=== PATIENT | male | born 1975 | race Two or more races ===

== ENCOUNTER 2025-03-03 12:58 | Inpatient (IN) | payer MEDICAID, OTHER ==
[~2025-03-03] VITALS: Ht 177.8 cm; Wt 77.4 kg
--- NOTE | 2025-03-03 13:53 | ED.PDOC ---
History of Present Illness HPI Comments Mr. Emery a 49-year-old male with no prior medical history who presents today with chief complaint of abdominal pain. The patient refers that for the last 2-3 days he had progressive onset of sharp epigastric pain, originally intermittent now constant, that radiates towards the back, 10/10 intensity, ass ociated with yellowing of his eyes, vomiting, febrile sensation, chills, palpitations, constipation, and shortness of breath, aggravated by eating, without relieving factors. Additionally refers changes in color of his stools. He denies nausea, chest pain, diarrhea, dysuria, hematemesis, hematochezia, and melena. To persistence of symptoms, the patient presented to the emergency department for further evaluation. On initial evaluation, the patient seems uncomfortable due to pain and vitals are stable. Chief Complaint: Abdominal Pain Time Seen by MD: 13:30 Allergies: Coded Allergies: NO KNOWN ALLERGIES (Unverified , 03/03/25) Information Source: Patient Mode of Arrival: Ambulatory Severity: Moderate Timing: Days Duration: Since onset Past Medical History PAST MEDICAL HISTORY: Denies Surgical History: Appendectomy Family History Family History: Family hx of Cancer (Sister with pancreatic cancer ) Social History Smoker: Non-Smoker Alcohol: Denies ETOH Use Drugs: Denies Drug Use Lives In: Home Constitutional: reports: chills, others (Febrile sensation ); denies: diaphoresis, fatigue, fever, malaise EENTM: denies: blurred vision, double vision, ear bleeding, ear discharge, ear drainage, ear pain, ear ringing, eye pain, hearing loss, nasal discharge, nose bleeding, nose congestion, nose pain, throat pain Respiratory: reports: shortness of breath; denies: cough, hemoptysis, orthopnea Cardiovascular: denies: chest pain, dizzy spells, diaphoresis, edema, lightheadedness, palpitations Gastrointestinal: reports: abdominal pain, constipated, poor appetite, vomiting ; denies: abdomen distended, blood streaked bowels, diarrhea, dysphagia, difficulty swallowing, hematemesis, melena, nausea, poor fluid intake, rectal bleeding, rectal pain Genitourinary: reports: others; denies: burning, dysuria, flank pain, frequency, hematuria, incontinence, pain, urgency Neurological: denies: dizziness, fainting, headache, numbness, paresthesia, seizure, tingling, tremors, weakness Musculoskeletal: denies: back pain, joint pain, joint swelling, muscle pain, muscle stiffness, neck pain Integumetry: reports: change in hair/nails; denies: bruises, change in color, laceration, lesions, lumps, rash, wounds Physical Exam General Appearance: Moderate Distress HEENT: PERRL/EOMI, Pharynx Normal, Scleral Icterus (L), Scleral Icterus (R) Neck: Full Range of Motion, Non-Tender, Normal Inspection Respiratory: Chest Non-Tender, No Accessory Muscle Use, No Respiratory Distress, Normal Breath Sounds Cardiovascular: No Edema, No Murmur, Normal Peripheral Pulses, Regular Rate/Rhythm Breast Exam: Deferred Gastrointestinal: Epigastric (Tenderness on palpation), Normal Bowel Sounds, RUQ (Vences positive ), Tenderness Genitalia: Deferred Pelvic: Deferred Rectal: Deferred Extremities: Normal capillary refill, Normal inspection, Normal range of motion, Non-tender, No pedal edema Neurologic: No Motor Deficits, Normal Affect, Normal Mood Cerebellar Function: Normal Reflexes: NOT DONE Skin: Normal Color (No jaundice noted on observation ) Lymphatic: No Adenopathy Was a procedure done? Was a procedure done?: No Differential Dx Considerations may include: Acute Cholecystitis, Acute Pancreatitis, Acute Choledocolithiasis, Acute Cholangitis, Acute Hepatitis X-Ray, Labs, Meds, VS Vital Signs Date Time Temp Pulse Resp B/P (MAP) Pulse Ox O2 Delivery O2 Flow Rate FiO2 03/03/25 13:01 98.2 81 18 121/69 97 98.2 Lab Test 03/03/25 14:07 03/03/25 14:06 Range/Units White Blood Count 6.7 4.4-10.8 10^3/uL Red Blood Count 3.96 L 4.5-5.90 10^6/uL Hemoglobin 13.8 13.5-17.5 g/dL Hematocrit 40.6 L 41.0-53.0 % Mean Corpuscular Volume 102.5 H 80.0-100.0 fL Mean Corpuscular Hemoglobin 34.8 H 28.0-32.0 pg Mean Corpuscular Hemoglobin Concent 33.9 32.0-36.0 g/dL Red Cell Distribution Width 13.8 11.8-14.3 % Platelet Count 166 140-450 10^3/uL Mean Platelet Volume 7.0 6.9-10.8 fL Neutrophils (%) (Auto) 80.7 H 37.0-80.0 % Lymphocytes (%) (Auto) 9.4 L 10.0-50.0 % Monocytes (%) (Auto) 8.8 0.0-12.0 % Eosinophils (%) (Auto) 0.9 0.0-7.0 % Basophils (%) (Auto) 0.2 0.0-2.0 % Neutrophils # (Auto) 5.5 1.6-8.6 10 ^3/uL Lymphocytes # (Auto) 0.6 0.4-5.4 10 ^3/uL Monocytes # (Auto) 0.6 0-1.3 10 ^3/uL Eosinophils # (Auto) 0.1 0-0.8 10 ^3/uL Basophils # (Auto) 0 0-0.2 10 ^3/uL Nucleated Red Blood Cells 0.0 % Sodium Level 139 136-145 mmol/L Potassium Level 3.6 3.5-5.1 mmol/L Chloride Level 102 98-107 mmol/L Carbon Dioxide Level 28 20-31 mmol/L Anion Gap 9 5-15 Blood Urea Nitrogen 15 9-23 mg/dL Creatinine 1.01 0.700-1.30 mg/dL Glomerular Filtration Rate Calc 92 >90 mL/min BUN/Creatinine Ratio 14.9 10.0-20.0 Serum Glucose 91 74-106 mg/dL Hemoglobin A1c Pending Calcium Level 9.0 8.7-10.4 mg/dL Total Bilirubin 6.4 H 0.2-1.0 mg/dL Aspartate Amino Transferase (AST) 34 13-40 U/L Alanine Aminotransferase (ALT) 47 H 7-40 U/L Alkaline Phosphatase 84 46-116 U/L Total Protein 7.4 5.7-8.2 g/dL Albumin 4.7 3.2-4.8 g/dL Triglycerides Level 69 < 150 mg/dL Cholesterol Level 104 < 200 mg/dL LDL Cholesterol 43 < 100 mg/dL HDL Cholesterol 44 40-59 mg/dL Lipase 34 12-53 U/L Hepatitis A IgM Antibody Negative Hepatitis B Surface Antigen Negative Negative Hepatitis B Core IgM Antibody Negative Negative Hepatitis C Antibody Negative Negative Urine Color [place] H Yellow Urine Clarity Clear Clear Urine pH 6.0 5.0-9.0 Urine Specific [place] 1.030 1.001-1.035 Urine Protein Trace H Negative Urine Ketones Negative Negative Urine Blood Negative Negative /uL Urine Nitrite Negative Negative Urine Bilirubin 1+ Negative Urine Urobilinogen 12 H Negative mg/dL Urine Leukocyte Esterase Negative Negative /uL Urine RBC 1 0 - 3 /hpf Urine Microscopic WBC 1 0-3 /HPF Urine Squamous Epithelial Cells Few <5 /hpf Urine Bacteria None seen None Seen /hpf Urine Mucus Few None Seen Urine Glucose Normal Normal mg/dL Time of 1ST Reevaluation: 15:00 Reevaluation 1ST: Unchanged Patient Education/Counseling: Diagnosis, Treatment Family Education/Counseling: No Family Present Comments The patient presented today due to abdominal pain On initial evaluation, the patient is noted to be stable, uncomfortable due to pain, and with icteric sclera. Physical exam is positive for icteric sclera and pain on palpation of epigastriu m and RUQ, with positive vences sign CBC shows mild neutrophilia and macrocytosis, CMP with mild elevation of ALT and total bilirubin of 6.4. Abdominal/Pelvic CT shows distended gall bladder with pericholecystic fat stranding. The patient will be admitted for further work up and management SEPSIS Sepsis Screen Date sepsis recognized/suspect: Mar 03, 2025 Time Sepsis recognized/suspect: 1301 Recent Procedure: No On Antibiotic Therapy: No Respiratory Rate >20: No Heart Rate >90: No Temp<36 C (96.8 F) or >38.3 C: No SBP <90 or MAP <65 mmHG: No New Acute Mental Status Change: No Is the patient on CPAP, BIPAP,: No Physician Orders Ct Ab Pel Wo Con-No Oral Or Iv (03/03/25 13:35) Npo (Nothing By Mouth) Diet (03/03/25 Dinner) Vital Signs Date Time Temp Pulse Resp B/P (MAP) Pulse Ox O2 Delivery O2 Flow Rate FiO2 03/03/25 13:01 98.2 81 18 121/69 97 98.2 Laboratory Tests Test 03/03/25 14:07 White Blood Count 6.7 10^3/uL (4.4-10.8) Departure 1 Departure Time of Disposition: 15:33 Impression: Primary Impression: Acute cholecystitis Disposition: 30 STILL A PATIENT Admit to: Med Surg Condition: Stable Critical Care Note Critical Care Time?: No Stability Stability form required: LIZ Pompa RESIDENT Mar 03, 2025 13:53
[2025-03-03 14:38] LABS: Hematocrit 40.6 % (41.0-53.0); Hemoglobin 13.8 g/dL (13.5-17.5); Mean Corpuscular Hemoglobin 34.8 pg (28.0-32.0); Mean Corpuscular Volume 102.5 fL (80.0-100.0); Nucleated Red Blood Cells % 0.0 %
--- NOTE | 2025-03-03 14:40 | DVH ---
CT CT AB PEL WO CON-NO ORAL OR IV INDICATION: R/o pancreatitis EXAM DATE: 03/03/2025 01:48 PM COMPARISON: None RADIATION DOSE: CTDIvol: 7 mGy, DLP: 415 mGy*cm PROCEDURE: Helical CT images were obtained of the abdomen and pelvis without IV contrast Sagittal and coronal reconstructions are provided. ORAL CONTRAST: None. ADDITIONAL IMAGES / REFORMATS: None All C T scans at this medical facility are performed using dose modulation techniques as appropriate to a p erformed exam including the following: Automated exposure control was utilized; adjustment of the MA and/or KV according to patient size; and use of iterative reconstruction technique. FINDINGS: LUNG BASE: Normal. LIVER: Normal. GALLBLADDER AND BILIARY TREE: Distended gallbladder with pericholecystic fat stranding could be saji cystitis. No intra- or extrahepatic biliary ductal dilation. PANCREAS: Normal. SPLEEN: Normal. BOWEL: Normal. ADRENALS: Normal. KIDNEYS AND URETER: Punctate nonobstructive left kidney stone. BLADDER: Normal. REPRODUCTIVE ORGANS: Normal. LYMPH NODES:No lymphadenopathy. PERITONEUM: No ascites or free air. No other fluid collection. VESSELS: Scattered atherosclerotic calcifications are noted. RETROPERITONEUM: Normal. ABDOMINAL WALL: Normal. BONES: Scattered osseous degenerative changes are noted. IMPRESSION: Distended gallbladder with pericholecystic fat stranding could be cholecystitis. Consider US scan for further evaluation. Punctate nonobstructive left kidney stone.
[2025-03-03 14:46] LABS: Alanine Aminotransferase 47 U/L (7-40); Albumin 4.7 g/dL (3.2-4.8); Alkaline Phosphatase 84 U/L (46-116); Anion Gap 9 (5-15); BUN/Creatinine Ratio 14.9 (10.0-20.0); Bilirubin, Total 6.4 mg/dL (0.2-1.0); Blood Urea Nitrogen 15 mg/dL (9-23); Calcium 9.0 mg/dL (8.7-10.4); Carbon Dioxide 28 mmol/L (20-31); Chloride 102 mmol/L (98-107); Glucose 91 mg/dL (74-106); Lipase 34 U/L (12-53); Potassium 3.6 mmol/L (3.5-5.1); Sodium 139 mmol/L (136-145); Total Protein 7.4 g/dL (5.7-8.2)
[2025-03-03 14:56] LABS: Urine Protein, UAD TRACE (Negative)
[2025-03-03] MEDS ORDERED: ACETAMINOPHEN 325 MG TAB PO PRN (15:00)
[2025-03-03 15:04] LABS: Hepatitis B Surface Antigen Negative (Negative)
[2025-03-03 15:23] LABS: Hepatitis C Antibody Negative (Negative)
[2025-03-03 15:26] LABS: Triglycerides 69 mg/dL (< 150)
[2025-03-03 15:28] LABS: Cholesterol 104 mg/dL (< 200); HDL Cholesterol 44 mg/dL (40-59)
--- NOTE | 2025-03-03 15:43 | DVH ---
CLINICAL HISTORY: Possible cholecystitis TECHNIQUE: Complete ultrasound exam of the abdomen was performed. COMPARISON: None FINDINGS: The liver is increased in echogenicity with no focal parenchymal abnormality. The liver measures 16. 3 cm. The common duct is 5 mm. The gallbladder contains sludge with moderate wall thickening. The sonograph ic archuleta's sign is reported to be present. The partially visualized pancreas is within normal limits. No ascites or fluid collection. The right kidney is 11.8 cm and the left kidney is 11.7 cm. No increased echogenicity, shadowing sto ne, or focal lesion. Mild right renal pelvicaliectasis. Spleen is within normal limits. The aorta and IVC are normal caliber and patent. IMPRESSION: Moderate gallbladder sludge with gallbladder wall thickening and positive reported sonographic archuleta 's sign. No gallstone seen. Consider HIDA and correlation with CT for more definitive diagnosis. Mild right renal pelvicaliectasis.
--- NOTE | 2025-03-03 16:04 | DVHHPRES ---
History of Present Illness Resident Creating Document: NICOLE BRUNER History of Present Illness This is a 49-year-old male with no past medical history of relevance and stated that does not take any medications at home. Patient presented to the ED due to acute abdominal pain in the epigastric region radiating to the back. Patient states that the abdominal pain has been going on for a couple of weeks, patient states that the pain comes and goes but it got worse 2 days back reason why he came to ED. The patient reports that the pain is localized in the epigastric region and radiates towards the back. The patient states that the pain is rated as 10/10 on the pain scale associated with nausea and vomiting x3. The patient also reports chills but states that did not quantified the temperature. The patient also reports shortness of breath while taking deep breaths and states that the pain gets significantly worse after eating. Patient denies any chest pain, diarrhea, or any other additional symptoms. Upon admission, CT scan of the abdomen showed possible signs of cholecystitis which were confirmed with gallbladder ultrasound. We will start the patient on IV fluids, IV antibiotics and place a surgical consult for acute cholecystitis. We will admit the patient for further assessment and management. Past medical history: None Home medications: None Surgical history: Appendectomy 18 years ago Allergies: None Social history: Reports occasional alcohol but denies any drugs or smoking history. Past Surgical History: Appendectomy Family History: None Smoke: No ALCOHOL: occassional Drugs: None Lives: with Family Review of Systems Constitutional: Yes: Chills; No: Fever, Sweats, Weakness, Malaise, Other Eyes: No: Pain, Vision change, Conjunctivae inflammation, Eyelid inflammation, Other, Redness ENT: No: Ear pain, Ear discharge, Nose pain, Nose discharge, Nose congestion, Mouth pain, Mouth swelling, Throat pain, Throat swelling, Other Respiratory: No: Cough, Dry, Shortness of breath, SOB with excertion, Wheezing, Hemoptysis, Pleuritic Pain, Sputum, Wheezing, Other Cardiovascular: No: Chest Pain, Palpitations, Orthopnea, Paroxysmal Noc. Dyspnea, Edema, Lt Headedness, Other Gastrointestinal: Nausea, Vomiting, Abdominal Pain; No: Diarrhea, Constipation, Melena, Hematochezia, Other Genitourinary: No Dysuria, No Frequency, No Incontinence, No Hematuria, No Retention, No Other Musculoskeletal: No: other, neck pain, shoulder pain, arm pain, back pain, hand pain, leg pain, foot pain Skin: No: Rash, Lesions, Jaundice, Bruising, Other Neurological: No: Weakness, Numbness, Incoordination, Change in speech, Confusion, Seizures, Other Allergies: Coded Allergies: NO KNOWN ALLERGIES (Unverified , 03/03/25) Medications Current Medications Medications Dose Ordered Sig/Bailey Route Start Time Stop Time Status Last Admin Dose Admin Acetaminophen 650 mg Q6HP PRN PO 03/03/25 15:00 UNV Acetaminophen/ Hydrocodone Bitart 1 tab Q4HP PRN PO 03/03/25 15:00 UNV Piperacillin Sod/ Tazobactam Sod 100 ml @ 25 mls/hr Q6HR IV 03/03/25 15:30 UNV Sodium Chloride 1,000 ml @ 100 mls/hr Q10H IV 03/03/25 15:30 UNV Exam Vital Signs Vital Signs Date Time Temp Pulse Resp B/P (MAP) Pulse Ox O2 Delivery O2 Flow Rate FiO2 03/03/25 13:01 98.2 81 18 121/69 97 98.2 General Appearance: Alert, Oriented X3, Cooperative, moderate distress HEENT: Atraumatic, PERRLA, EOMI, Mucous membr. moist/pink Respiratory: Clear to auscultation, Normal air movement Cardiovascular: Regular rate, Normal S1, Normal S2, No murmurs Abdominal: Normal bowel sounds, Other (Is significant tenderness to palpation in the epigastric and right upper quadrant.) Extremities: No clubbing, No cyanosis, No edema, Normal pulses, No tenderness/swelling Skin: No rashes, No breakdown, No significant lesion Neuro: Normal gait, Normal speech, Strength at 5/5 X4 ext, Normal tone, Sensation intact, Cranial nerves 3-12 NL, Reflexes 2+ Psych/Mental Status: Mental status NL, Mood NL Labs/Xrays Labs Test 03/03/25 14:07 03/03/25 14:06 Range/Units White Blood Count 6.7 4.4-10.8 10^3/uL Red Blood Count 3.96 L 4.5-5.90 10^6/uL Hemoglobin 13.8 13.5-17.5 g/dL Hematocrit 40.6 L 41.0-53.0 % Mean Corpuscular Volume 102.5 H 80.0-100.0 fL Mean Corpuscular Hemoglobin 34.8 H 28.0-32.0 pg Mean Corpuscular Hemoglobin Concent 33.9 32.0-36.0 g/dL Red Cell Distribution Width 13.8 11.8-14.3 % Platelet Count 166 140-450 10^3/uL Mean Platelet Volume 7.0 6.9-10.8 fL Neutrophils (%) (Auto) 80.7 H 37.0-80.0 % Lymphocytes (%) (Auto) 9.4 L 10.0-50.0 % Monocytes (%) (Auto) 8.8 0.0-12.0 % Eosinophils (%) (Auto) 0.9 0.0-7.0 % Basophils (%) (Auto) 0.2 0.0-2.0 % Neutrophils # (Auto) 5.5 1.6-8.6 10 ^3/uL Lymphocytes # (Auto) 0.6 0.4-5.4 10 ^3/uL Monocytes # (Auto) 0.6 0-1.3 10 ^3/uL Eosinophils # (Auto) 0.1 0-0.8 10 ^3/uL Basophils # (Auto) 0 0-0.2 10 ^3/uL Nucleated Red Blood Cells 0.0 % Sodium Level 139 136-145 mmol/L Potassium Level 3.6 3.5-5.1 mmol/L Chloride Level 102 98-107 mmol/L Carbon Dioxide Level 28 20-31 mmol/L Anion Gap 9 5-15 Blood Urea Nitrogen 15 9-23 mg/dL Creatinine 1.01 0.700-1.30 mg/dL Glomerular Filtration Rate Calc 92 >90 mL/min BUN/Creatinine Ratio 14.9 10.0-20.0 Serum Glucose 91 74-106 mg/dL Calcium Level 9.0 8.7-10.4 mg/dL Total Bilirubin 6.4 H 0.2-1.0 mg/dL Aspartate Amino Transferase (AST) 34 13-40 U/L Alanine Aminotransferase (ALT) 47 H 7-40 U/L Alkaline Phosphatase 84 46-116 U/L Total Protein 7.4 5.7-8.2 g/dL Albumin 4.7 3.2-4.8 g/dL Triglycerides Level 69 < 150 mg/dL Cholesterol Level 104 < 200 mg/dL LDL Cholesterol 43 < 100 mg/dL HDL Cholesterol 44 40-59 mg/dL Lipase 34 12-53 U/L Hepatitis A IgM Antibody Negative Hepatitis B Surface Antigen Negative Negative Hepatitis B Core IgM Antibody Negative Negative Hepatitis C Antibody Negative Negative Urine Color [place] H Yellow Urine Clarity Clear Clear Urine pH 6.0 5.0-9.0 Urine Specific [place] 1.030 1.001-1.035 Urine Protein Trace H Negative Urine Ketones Negative Negative Urine Blood Negative Negative /uL Urine Nitrite Negative Negative Urine Bilirubin 1+ Negative Urine Urobilinogen 12 H Negative mg/dL Urine Leukocyte Esterase Negative Negative /uL Urine RBC 1 0 - 3 /hpf Urine Microscopic WBC 1 0-3 /HPF Urine Squamous Epithelial Cells Few <5 /hpf Urine Bacteria None seen None Seen /hpf Urine Mucus Few None Seen Urine Glucose Normal Normal mg/dL SEPSIS Sepsis Screen Date sepsis recognized/suspect: Mar 03, 2025 Time Sepsis recognized/suspect: 1301 Recent Procedure: No On Antibiotic Therapy: No Respiratory Rate >20: No Heart Rate >90: No Temp<36 C (96.8 F) or >38.3 C: No SBP <90 or MAP <65 mmHG: No New Acute Mental Status Change: No Is the patient on CPAP, BIPAP,: No Physician Orders Ct Ab Pel Wo Con-No Oral Or Iv (03/03/25 13:35) Npo (Nothing By Mouth) Diet (03/03/25 Dinner) Admit (03/03/25 14:56) Code Status (03/03/25 14:56) Vital Signs .PER UNIT PROTOCOL (03/03/25 14:56) Review Orders With Adm. (03/03/25 14:56) Encourage Activity As Tolerate (03/03/25 14:56) Acetaminophen Tablet (Tylenol Tablet) (03/03/25 15:00) Notify Md Of Changes From Base (03/03/25 14:56) Advance Directive (03/03/25 14:56) Urinalysis (03/03/25 14:56) Complete Blood Count (03/04/25 04:00) Patient Condition (03/03/25 14:56) Allergies (03/03/25 14:56) Hydrocodone-Acet 5/325mg Tab (Morning Sun 5/32 (03/03/25 15:00) Drug Screen (03/03/25 14:56) Hemoglobin A1c (03/03/25 14:56) Piperacillin-Tazob 3.375gm (Zosyn 3.375g (03/03/25 15:30) * Surgical Consult (03/03/25 ) Sodium Chloride 0.9% (03/03/25 15:30) Vitamin D, 25-Hydroxy (03/03/25 15:26) Abdomen Complete Sonogram (03/03/25 14:57) Vital Signs Date Time Temp Pulse Resp B/P (MAP) Pulse Ox O2 Delivery O2 Flow Rate FiO2 03/03/25 13:01 98.2 81 18 121/69 97 98.2 Laboratory Tests Test 03/03/25 14:07 White Blood Count 6.7 10^3/uL (4.4-10.8) Assessment/Plan Assessment/Plan Assessment/plan Acute abdominal pain likely due to acute cholecystitis Acute cholecystitis Ruled out acute pancreatitis Status post appendectomy 18 years ago Plan -CT scan of the abdomen showed Distended gallbladder with pericholecystic fat stranding could be cholecystitis -gallbladder ultrasound is also suggesting findings of acute cholecystitis -start IV fluids at 100 cc/hour -start IV antibiotics Zosyn -surgical consult for cholecystectomy -pain medications -placed patient NPO Goals of care discussed with the patient at bedside, FULL CODE Plan discussed with Dr. Upton Plan discussed with: Patient My Orders Orders - NICOLE BRUNER RESIDENT Procedure Category Date Status Time Admit ADMIT 03/03/25 Transmitted 14:56 Code Status CODE 03/03/25 Transmitted 14:56 Vital Signs EUSEBIO 03/03/25 In Process 14:56 Review Orders With EUSEBIO 03/03/25 Transmitted Adm. 14:56 Encourage Activity As EUSEBIO 03/03/25 In Process Tolerate 14:56 Acetaminophen Tablet PHA 03/03/25 Logged (Tylenol Tablet) 15:00 Notify Of Changes EUSEBIO 03/03/25 In Process From Base 14:56 Advance Directive EUSEBIO 03/03/25 In Process 14:56 Urinalysis LAB 03/03/25 Logged 14:56 Complete Blood Count LAB 03/04/25 Verified 04:00 Patient Condition ORDERS 03/03/25 Transmitted 14:56 Allergies EUSEBIO 03/03/25 In Process 14:56 Hydrocodone-Acet PHA 03/03/25 Logged 5/325mg Tab (Morning Sun 15:00 Drug Screen LAB 03/03/25 Logged 14:56 Hemoglobin A1c LAB 03/03/25 In Process 14:56 Piperacillin-Tazob PHA 03/03/25 Logged 3.375gm (Zosyn 3.375g 15:30 * Surgical Consult CONS 03/03/25 Transmitted Sodium Chloride 0.9% PHA 03/03/25 Logged 15:30 Vitamin D, 25-Hydroxy LAB 03/03/25 In Process 15:26 Date of Service: Mar 03, 2025 Billing Provider: ROCÍO UPTON MD Common Visit Codes: 20885-DXHGYPH INP/OBS CARE (HIGH) Secondary Visit Codes: 75853-[id number] CARE PLAN 30 MINUTES NICOLE BRUNER RESIDENT Mar 03, 2025 16:03 ROCÍO UPTON MD Mar 03, 2025 22:22
[2025-03-03] MEDS: SODIUM CHLORIDE 0.9% 1,000 ML IV SCH (16:24)
[2025-03-03] MEDS ORDERED: PIPERACILLIN-TAZOB 3.375GM 100 ML IV SCH (16:30)
[2025-03-03 16:32] VITALS: PULSE 74; RESP 19; O2SAT 98
[2025-03-03] MEDS: SODIUM CHLORIDE 0.9% 1,000 ML IV ONE (16:38)
[2025-03-03] MEDS: PIPERACILLIN-TAZOB 3.375GM 100 ML IV ONE (16:43)
[2025-03-03] MEDS: HYDROmorphone HCL 2 MG/ML VL/or syr IV ONE ×2 (16:43→23:04)
[2025-03-03 17:25] VITALS: BP 127/64; PULSE 79; RESP 16; TEMP 98.6; O2SAT 92
[2025-03-03 20:22] LABS: Barbiturate Scree,Urine Pos (NEGATIVE)
[2025-03-03 20:35] VITALS: BP 134/71; PULSE 82; RESP 18; TEMP 98.9; O2SAT 96
[2025-03-03 20:38] LABS: Amphetamine Screen, Urine Neg (NEGATIVE); Benzodiazephine Screen, Urine Neg (NEGATIVE); Cannabinoid Screen, Urine Neg (NEGATIVE); Cocaine Screen, Urine Neg (NEGATIVE); Opiate Scree,Urine Pos (NEGATIVE); Phencyclidine Screen, Urine Neg (NEGATIVE)
[2025-03-03] MEDS: HYDROmorphone HCL 2 MG/ML VL/or syr IV PRN (20:38)
[2025-03-03 20:44] VITALS: BP 109/57; PULSE 81; RESP 19; TEMP 98.7; O2SAT 96
[2025-03-03 21:03] VITALS: PULSE 82; RESP 18; O2SAT 96
[2025-03-03] MEDS: PIPERACILLIN-TAZOB 3.375GM 100 ML IV SCH (23:04)
[2025-03-04] VITALS (8 sets, daily range): BP systolic 104–125; BP diastolic 61–74; PULSE 70–96; RESP 17–18; TEMP 97.6–101.2; O2SAT 92–94
[2025-03-04] MEDS: ACETAMINOPHEN IV 1000 MG/100ML (10MG/ML) IV ONE (04:20)
[2025-03-04 05:48] LABS: Hematocrit 34.8 % (41.0-53.0); Hemoglobin 12.0 g/dL (13.5-17.5); Mean Corpuscular Hemoglobin 35.0 pg (28.0-32.0); Mean Corpuscular Volume 101.6 fL (80.0-100.0); Nucleated Red Blood Cells % 0.1 %
[2025-03-04] MEDS: HYDROcodone-ACET 5/325MG TAB PO PRN (08:22)
[2025-03-04] MEDS: ERGOCALCIFEROL 50,000 UNIT(1.25MG) CAP PO SCH (10:12)
--- NOTE | 2025-03-04 11:40 | DVH ---
MRCP without contrast HISTORY: R/O Choledocolithiasis. Right upper quadrant pain. COMPARISON: Ultrasound from 03/03/2025. Technique: Multiplanar multisequence MRI images were obtained of the abdomen without intravenous cont rast. Additional MIPS were obtained of the biliary system. FINDINGS: Bile ducts: -Intrahepatic ducts: Non-dilated. -Extrahepatic ducts: Non-dilated. -Common bile duct: Non-dilated. -Filling defects: No filling defects -Stricture: None. Gallbladder: No gallstones. Sludge in the gallbladder. Gallbladder distention. Diffuse gallbladder w all thickening. Mild edema. Pancreas: Pancreatic duct: No ductal dilatation. Lesions: None. Liver: Signal intensity: Homogenous. Contour: Smooth. Size: Normal. Lesions: No focal liver lesion. ADDITIONAL FINDINGS: Lung base: Normal. Pancreas: Normal. Spleen: Enlarged measuring 14.5 cm. Bowel: Normal. Adrenal glands:Normal. Kidneys and ureters:Normal. Lymph nodes:Normal. Peritoneum:Normal. Vessels: Normal. Abdominal wall: Normal. Bone: No aggressive bone lesions IMPRESSION: CBD is normal in diameter with no stone or other obstructing lesion. Thick-walled distended gallbladder without gallstones and with surrounding edema again making it diff icult to exclude acute acalculous cholecystitis. Mild splenomegaly.
--- NOTE | 2025-03-04 14:51 | DVHPNRES ---
Progress Note Date Seen: Mar 04, 2025 Resident Creating Document: JAZZ MENDEZ RESIDENT Medical Necessity Reason Pt with a Central, PICC or Fol: No Subjective Review of Systems Waqar Emery is a 49-year old with no past medical history who came to the ER with the chief complaint of acute abdominal pain. Patient states that he has had the abdominal pain for a few weeks, it comes and goes but isn't increased in intensity 2 days back. Pain is 10/10 in intensity, in the epigastric region radiating towards the back, associated with nausea and 3 episodes of vomiting. Patient had chills but denies fever. He states he also had shortness of breath while taking deep breaths , which gets worse after eating. CT scan of the abdomen showed possible signs of cholecystitis which were confirmed with gallbladder ultrasound. Liver US showed Moderate gallbladder sludge with gallbladder wall thickening and positive reported sonographic archuleta's sign. No gallstone seen. MRCP showed CBD is normal in diameter with no stone or other obstructing lesion, Thick-walled distended gallbladder without gallstones and with surrounding edema again making it difficult to exclude acute acalculous cholecystitis and Mild splenomegaly. Surgical consult was done, pending evaluation by them. Past medical history: none Past surgical history: appendectomy 18 years ago Social & Personal history: lives at home with family Smoking: denies Alcohol: ocassional intake Drugs:denies Allergies: no known allergies Patient seen and examined at bedside. Patient is alert and oriented to time, place person and responding to all questions. Eyes: No Pain, No Vision change, No Conjunctivae inflammation, No Eyelid inflammation, No Redness ENT: No Ear pain, No Ear discharge, No Nose pain, No Nose discharge, No Nose congestion, No Mouth pain, No Mouth swelling, No Throat pain, No Throat swelling Cardiovascular: No Chest Pain, No Palpitations, No Orthopnea, No Paroxysmal No Dyspnea, No Edema, No Lt Headedness Respiratory: No Cough, No Dry, No Shortness of breath, No SOB with exertion, No Wheezing, No Hemoptysis, No Pleuritic Pain, No Sputum Gastrointestinal: Nausea, Vomiting,Abdominal Pain, No Diarrhea, No Constipation, No Melena, No Hematochezia Genitourinary: No Dysuria, No Frequency, No Incontinence, No Hematuria, No Retention Objective vital signs Vital Sign Date Time Temp Pulse Resp B/P (MAP) Pulse Ox O2 Delivery O2 Flow Rate FiO2 03/04/25 12:59 98.3 78 17 104/61 (75) 94 98.3 03/04/25 08:05 Room Air* 0 21 Total Intake and Output 03/03/25 03/03/25 03/04/25 15:00 23:00 07:00 Intake Total 0 ml Output Total 200 ml Balance -200 ml medications Current Medications Medications Dose Ordered Sig/Bailey Route Start Time Stop Time Status Last Admin Dose Admin Acetaminophen 650 mg Q6HP PRN PO 03/03/25 15:00 Acetaminophen/ Hydrocodone Bitart 1 tab Q4HP PRN PO 03/03/25 15:00 03/04/25 14:38 1 TAB Piperacillin Sod/ Tazobactam Sod 100 ml @ 25 mls/hr Q6H IV 03/03/25 23:00 03/04/25 11:22 25 MLS/HR Sodium Chloride 1,000 ml @ 100 mls/hr Q10H IV 03/03/25 15:30 03/04/25 01:48 100 MLS/HR Hydromorphone HCl 0.25 mg Q6HP PRN IV 03/03/25 19:00 03/04/25 10:12 0.25 MG Ergocalciferol 50,000 unit Q7D PO 03/04/25 09:15 03/04/25 10:12 50,000 UNIT Examination General Appearance: Alert, Oriented X3, Cooperative, moderate distress HEENT: Atraumatic, PERRLA, EOMI, Mucous membr. moist/pink,scleral icterus bilateral eyes Respiratory: Clear to auscultation, Normal air movement Cardiovascular: Regular rate, Normal S1, Normal S2, No murmurs Abdominal: Normal bowel sounds, significant tenderness to palpation in the epigastric and right upper quadrant Extremities: No clubbing, No cyanosis, No edema, Normal pulses, No tenderness/swelling Skin: No rashes, No breakdown, No significant lesion Neuro: Normal gait, Normal speech, Strength at 5/5 X4 ext, Normal tone, Sensation intact, Cranial nerves 3-12 NL, Reflexes 2+ Psych/Mental Status: Mental status NL, Mood NL laboratory and microbiology Laboratory Tests 03/04/25 04:36 03/03/25 14:07 Test 03/03/25 14:07 Range/Units Serum Glucose 91 74-106 mg/dL Labs and/or images reviewed: Labs reviewed by me, Image(s) reviewed by me Problem List/Assessment/Plan Problem List/Assessment/Plan Acute abdominal pain likely due to acute cholecystitis Acute cholecystitis Hyperbilirubinemia Ruled out acute pancreatitis Status post appendectomy 18 years ago -CT scan of the abdomen showed Distended gallbladder with pericholecystic fat stranding could be cholecystitis -gallbladder ultrasound is also suggesting findings of acute cholecystitis -IV fluids at 100 cc/hour - IV antibiotics Zosyn -surgical consult for cholecystectomy-ordered MRCP- Thick-walled distended gallbladder without gallstones and with surrounding edema again making it difficult to exclude acute acalculous cholecystitis - CBD is normal in diameter with no stone or other obstructing lesion. -pain medications -placed patient NPO -ordered HIDA scan,pending Vitamin D deficiency -supplemented with Vit D50,000 units po daily for 1 week Goals of care discussed with the patient at bedside, FULL CODE Plan discussed with Dr. Malloy Plan discussed with: Patient My Orders My Orders Orders - JAZZ MENDEZ Procedure Category Date Status Time Ergocalciferol PHA 03/04/25 In Process (Vitamin D 50,000 09:15 Date of Service: Mar 04, 2025 Billing Provider: ROCÍO MALLOY MD Common Visit Codes: [id number] INP/OBS CARE(HIGH) Date of Service: Mar 04, 2025 Billing Provider: ROCÍO MALLOY MD Common Visit Codes: [id number] INP/OBS CARE(HIGH) JAZZ MENDEZ Mar 04, 2025 14:51 ROCÍO MALLOY MD Mar 05, 2025 21:32
[2025-03-04 15:44] LABS: INR 1.11 (0.9-1.15); Partial Thromboplastin Time 32.9 SEC (24.5-34.5); Prothrombin Time 11.6 sec (9.3-11.8)
--- NOTE | 2025-03-04 17:25 | DVH ---
NUCLEAR MEDICINE HEPATOBILIARY SCAN REASON FOR EXAM: r/o cholecystitis. Right upper quadrant pain. RADIOPHARMACEUTICAL: 4.1 mCi Tc-99m mebrofenin, IV AUTHORIZED USER: Kobe Bergman M.D. TECHNIQUE: Following the intravenous administration of 4.1 mCi Tc-99m mebrofenin, sequential images were obtained every 2 minutes over the abdomen for sixty minutes. Right lateral, left lateral, and a nterior planar 4 hour delayed images were also acquired. FINDINGS: There is prompt, uniform accumulation of tracer by the liver. There is normal filling of t he intrahepatic ducts and common bile duct. There is normal excretion of tracer into the duodenum. T he gallbladder does not fill with radiotracer on initial images or on the 4 hour delayed images. IMPRESSION: Nonvisualization of the gallbladder at 4 hours. This is consistent with acute cholecystitis.
[2025-03-04] MEDS: HYDROmorphone HCL 2 MG/ML VL/or syr IV ONE (22:43)
[2025-03-05] VITALS (11 sets, daily range): BP systolic 117–137; BP diastolic 75–92; PULSE 73–100; RESP 12–19; TEMP 97.1–98.9; O2SAT 91–97
[2025-03-05] MEDS ORDERED: HYDROmorphone HCL 2 MG/ML VL/or syr IM ONE (03:40)
[2025-03-05] MEDS: HYDROmorphone HCL 2 MG/ML VL/or syr IV ONE (03:56)
[2025-03-05 06:05] LABS: Hematocrit 35.8 % (41.0-53.0); Hemoglobin 12.5 g/dL (13.5-17.5); Mean Corpuscular Hemoglobin 35.0 pg (28.0-32.0); Mean Corpuscular Volume 100.2 fL (80.0-100.0); Nucleated Red Blood Cells % 0.0 %
[2025-03-05 06:20] LABS: Chloride 101 mmol/L (98-107)
[2025-03-05 06:21] LABS: Anion Gap 14 (5-15); Carbon Dioxide 22 mmol/L (20-31); Sodium 137 mmol/L (136-145)
[2025-03-05 06:23] LABS: Calcium 8.6 mg/dL (8.7-10.4); Potassium 3.3 mmol/L (3.5-5.1)
[2025-03-05 06:27] LABS: BUN/Creatinine Ratio 13.4 (10.0-20.0); Blood Urea Nitrogen 11 mg/dL (9-23)
[2025-03-05 06:32] LABS: Glucose 108 mg/dL (74-106)
[2025-03-05] MEDS: LIDOCAINE W/ EPINEPHRINE 1% 20ML VIAL ONE (08:25)
[2025-03-05] MEDS: BUPIVACAINE HCL 0.25% P/F 10 ML VIAL ONE (08:25)
[2025-03-05] MEDS ORDERED: fentaNYL CITRATE 100 MCG/2 ML VL ONE (08:40)
[2025-03-05] MEDS ORDERED: MIDAZOLAM HCL 2MG/2ML 2ml VIAL (1mg/ml) ONE (08:40)
[2025-03-05] MEDS ORDERED: MEPERIDINE HCL (25 MG/ML) 1ML VIAL ONE (08:40)
[2025-03-05] MEDS ORDERED: PROPOFOL 10 MG/ML 20 ML IV ONE (08:41)
[2025-03-05] MEDS ORDERED: ONDANSETRON HCL 4 MG/2 ML VIAL ONE (08:41)
[2025-03-05] MEDS ORDERED: ROCURONIUM 10MG/ML 10ML VIAL IV ONE (08:41)
[2025-03-05] MEDS ORDERED: SUGAMMADEX 200mg/2ml Vial (100MG/ML) IV ONE (09:36)
[2025-03-05] MEDS ORDERED: hydrALAZINE HCL 20 MG/ML VL IV PRN (10:15)
[2025-03-05] MEDS ORDERED: MORPHINE SULFATE 4 MG/ML SYR/VIAL IV PRN (10:15)
[2025-03-05] MEDS ORDERED: HYDROmorphone HCL 2 MG/ML VL/or syr IV PRN (10:15)
[2025-03-05] MEDS ORDERED: ONDANSETRON HCL 4 MG/2 ML VIAL IV PRN (10:15)
[2025-03-05] MEDS ORDERED: MIDAZOLAM HCL 2MG/2ML 2ml VIAL (1mg/ml) IV PRN (10:15)
[2025-03-05] MEDS: POTASSIUM CHLORIDE 40 MEQ, LIDOCAINE 1% (LOCAL ANESTH.) 4 ML in SODIUM CHL 0.9% 250 ML IV ONE (11:32)
--- NOTE | 2025-03-05 11:53 | DVHOP ---
DATE OF SURGERY: 03/05/2025 PREOPERATIVE DIAGNOSES: Cholecystitis. POSTOPERATIVE DIAGNOSES: Gangrenous cholecystitis and cholelithiasis. SURGEON: Burt Lancaster MD OUTPATIENT PROGRAM COORDINATOR: Berhane Wong NP ANESTHESIA: General endotracheal, Dr. Dowd. PROCEDURES: * Laparoscopy. * Laparoscopic cholecystectomy. DESCRIPTION OF PROCEDURE: Under general endotracheal anesthesia with the patient's skin prepped and draped, a supraumbilical incision was made and a Veress needle inserted by the hanging drop technique in order to establish pneumoperitoneum to 15 mmHg pressure by insufflation with carbon dioxide. With the abdomen fully distended, the needle was removed and replaced with a 5-mm trocar port, which was used for insertion of a 0-degree viewing laparoscope. Under direct vision, additional 5 and 10-mm ports were inserted through the right anterior axillary line at the level of the umbilicus and subxiphoid incision respectively. Instrumentation was introduced and laparoscopy was conducted revealing gangrenous cholecystitis with much surrounding inflammatory changes. There was no evidence of any unassociated pathology in the peritoneal cavity on the serosal surfaces visualized. The gallbladder was aspirated of inspissated bile, which was sent for cultures and sensitivities, and subsequently, the gallbladder was grasped with a grasping forceps and placed on tension. Much inflammation and necrotic wall were present. The inflammatory tissue was stripped away from the infundibular portion of the gallbladder. Cystic duct and cystic artery were identified, circumferentially dissected, traced into the hepatocystic triangle just to minimize the potential for inadvertent injury to the common bile duct. Cystic duct and cystic artery were then divided between metallic clips close to the gallbladder, again attempting to avoid inadvertent injury to the common bile duct. Following division of the cystic duct and cystic artery, the gallbladder was resected from its liver bed. The gallbladder was gangrenous and almost entirely intrahepatic. The intrahepatic nature of the gallbladder resulted in denuding of some liver parenchyma, which necessitated placement of a 10-mm Amilcar Valera drain underneath the right lobe of the liver at the termination of the procedure. The fully mobilized gallbladder was removed from the peritoneal cavity through the subxiphoid incision. Subsequently, the right upper quadrant was profusely irrigated. Irrigant was aspirated. Hemostasis was accomplished and was assisted by use of hemostatic SNoW into the liver bed of the gallbladder. A 10-mm Amilcar-Valera drain was placed underneath the right lobe of the liver and exteriorized through the 5-mm trocar port site. The drain was secured with a 2-0 nylon suture. Following assurance of complete hemostasis, the instrumentation was withdrawn. Pneumoperitoneum was evacuated. The fascial defect was closed using 0 Vicryl. The wounds were approximated using Monocryl sutures, Dermabond glue, and Steri-Strips. The patient remained stable throughout the procedure, left the operating room following an accurate needle and sponge counts. The patient's friend, Gunner, was thoroughly informed at [phone]. MD MIGUELANGEL Campos/BARTOLO TID: [id number] RECEIPT: [id number]
[2025-03-05] MEDS: D5W/SOD CHL 0.45%/KCL 20MEQ 1,000 ML IV SCH (17:54)
--- NOTE | 2025-03-05 18:04 | DVHPNRES ---
Progress Note Date Seen: Mar 05, 2025 Resident Creating Document: JAZZ MENDEZ RESIDENT Medical Necessity Reason Pt with a Central, PICC or Fol: No Subjective Review of Systems Waqar Emery is a 49-year old with no past medical history who came to the ER with the chief complaint of acute abdominal pain. Patient states that he has had the abdominal pain for a few weeks, it comes and goes but isn't increased in intensity 2 days back. Pain is 10/10 in intensity, in the epigastric region radiating towards the back, associated with nausea and 3 episodes of vomiting. Patient had chills but denies fever. He states he also had shortness of breath while taking deep breaths , which gets worse after eating. CT scan of the abdomen showed possible signs of cholecystitis which were confirmed with gallbladder ultrasound. Liver US showed Moderate gallbladder sludge with gallbladder wall thickening and positive reported sonographic archuleta's sign. No gallstone seen. MRCP showed CBD is normal in diameter with no stone or other obstructing lesion, Thick-walled distended gallbladder without gallstones and with surrounding edema again making it difficult to exclude acute acalculous cholecystitis and Mild splenomegaly. Surgical consult was done, pending evaluation by them. Past medical history: none Past surgical history: appendectomy 18 years ago Social & Personal history: lives at home with family Smoking: denies Alcohol: ocassional intake Drugs:denies Allergies: no known allergies Patient seen and examined at bedside. Patient is alert and oriented to time, place person and responding to all questions. Eyes: No Pain, No Vision change, No Conjunctivae inflammation, No Eyelid inflammation, No Redness ENT: No Ear pain, No Ear discharge, No Nose pain, No Nose discharge, No Nose congestion, No Mouth pain, No Mouth swelling, No Throat pain, No Throat swelling Cardiovascular: No Chest Pain, No Palpitations, No Orthopnea, No Paroxysmal No Dyspnea, No Edema, No Lt Headedness Respiratory: No Cough, No Dry, No Shortness of breath, No SOB with exertion, No Wheezing, No Hemoptysis, No Pleuritic Pain, No Sputum Gastrointestinal: Nausea, Vomiting,Abdominal Pain, No Diarrhea, No Constipation, No Melena, No Hematochezia Genitourinary: No Dysuria, No Frequency, No Incontinence, No Hematuria, No Retention 03/05/25- The patient was seen at bedside today. All labs and charts were reviewed. The patient complained of intense right-sided abdominal pain. The patient is due for surgery today. Objective vital signs Vital Sign Date Time Temp Pulse Resp B/P (MAP) Pulse Ox O2 Delivery O2 Flow Rate FiO2 03/05/25 17:24 97.4 75 16 126/77 (93) 97 97.4 03/05/25 10:06 Nasal Cannula 4.0 96 Total Intake and Output 03/04/25 03/04/25 03/05/25 14:59 22:59 06:59 Intake Total 100 ml 0 ml Balance 100 ml 0 ml medications Current Medications Medications Dose Ordered Sig/Bailey Route Start Time Stop Time Status Last Admin Dose Admin Acetaminophen 650 mg Q6HP PRN PO 03/03/25 15:00 Acetaminophen/ Hydrocodone Bitart 1 tab Q4HP PRN PO 03/03/25 15:00 03/05/25 07:56 1 TAB Piperacillin Sod/ Tazobactam Sod 100 ml @ 25 mls/hr Q6H IV 03/03/25 23:00 03/05/25 17:56 25 MLS/HR Sodium Chloride 1,000 ml @ 100 mls/hr Q10H IV 03/03/25 15:30 03/05/25 13:35 100 MLS/HR Hydromorphone HCl 0.25 mg Q6HP PRN IV 03/03/25 19:00 03/05/25 06:52 0.25 MG Ergocalciferol 50,000 unit Q7D PO 03/04/25 09:15 03/04/25 10:12 50,000 UNIT Potassium Chloride/Dextrose/ Sod Cl 1,000 ml @ 120 mls/hr Q8H20M IV 03/05/25 10:30 03/05/25 17:54 120 MLS/HR Examination General Appearance: Alert, Oriented X3, Cooperative, moderate distress HEENT: Atraumatic, PERRLA, EOMI, Mucous membr. moist/pink,scleral icterus bilateral eyes Respiratory: Clear to auscultation, Normal air movement Cardiovascular: Regular rate, Normal S1, Normal S2, No murmurs Abdominal: Normal bowel sounds, significant tenderness to palpation in the epigastric and right upper quadrant Extremities: No clubbing, No cyanosis, No edema, Normal pulses, No tenderness/swelling Skin: No rashes, No breakdown, No significant lesion Neuro: Normal gait, Normal speech, Strength at 5/5 X4 ext, Normal tone, Sensation intact, Cranial nerves 3-12 NL, Reflexes 2+ Psych/Mental Status: Mental status NL, Mood NL laboratory and microbiology Laboratory Tests 03/05/25 04:50 Test 03/05/25 04:50 Range/Units Serum Glucose 108 H 74-106 mg/dL Labs and/or images reviewed: Labs reviewed by me, Image(s) reviewed by me Problem List/Assessment/Plan Problem List/Assessment/Plan Acute abdominal pain likely due to acute cholecystitis Acute cholecystitis Hyperbilirubinemia Ruled out acute pancreatitis Status post appendectomy 18 years ago -CT scan of the abdomen showed Distended gallbladder with pericholecystic fat stranding could be cholecystitis -gallbladder ultrasound is also suggesting findings of acute cholecystitis -IV fluids at 100 cc/hour - IV antibiotics Zosyn -surgical consult for cholecystectomy-ordered MRCP- Thick-walled distended gallbladder without gallstones and with surrounding edema again making it difficult to exclude acute acalculous cholecystitis - CBD is normal in diameter with no stone or other obstructing lesion. -pain medications -placed patient NPO -HIDA scan showed Nonvisualization of the gallbladder at 4 hours. This is consistent with acute cholecystitis. -patient scheduled for surgery today Vitamin D deficiency -supplemented with Vit D50,000 units po daily for 1 week Goals of care discussed with the patient at bedside, FULL CODE Plan discussed with Dr. Malloy Plan discussed with: Patient Dietary Evaluation Review Comments: 1) Advance to low-fat diet when medically feasible 2) Encourage optimal PO intake 3) Follow-up with gastroenterology 4) Continue to monitor I&O, labs, and skin integrity Expected Outcomes/Goals: 1) appetite and labs to improve 2) diet to advance 3) f/u in 3-5 days Date of Service: Mar 05, 2025 Billing Provider: ROCÍO MALLOY MD Common Visit Codes: [id number] INP/OBS CARE(HIGH) JAZZ MENDEZ RESIDENT Mar 05, 2025 18:04 ROCÍO MALLOY MD Mar 05, 2025 21:33
[2025-03-06] VITALS (7 sets, daily range): BP systolic 103–130; BP diastolic 66–94; PULSE 64–72; RESP 15–20; TEMP 96.9–98.3; O2SAT 91–98
[2025-03-06 05:20] LABS: Hemoglobin 10.4 g/dL (13.5-17.5)
[2025-03-06 05:23] LABS: Hematocrit 30.1 % (41.0-53.0); Mean Corpuscular Hemoglobin 33.9 pg (28.0-32.0); Mean Corpuscular Volume 98.5 fL (80.0-100.0); Nucleated Red Blood Cells % 0.0 %
[2025-03-06 05:38] LABS: Anion Gap 7 (5-15); Carbon Dioxide 25 mmol/L (20-31); Chloride 106 mmol/L (98-107); Potassium 4.2 mmol/L (3.5-5.1); Sodium 138 mmol/L (136-145)
[2025-03-06 05:44] LABS: BUN/Creatinine Ratio 14.8 (10.0-20.0); Blood Urea Nitrogen 9 mg/dL (9-23)
[2025-03-06 05:46] LABS: Calcium 8.3 mg/dL (8.7-10.4); Glucose 147 mg/dL (74-106)
[2025-03-06] MEDS ORDERED: PHENYLEPHRINE HCL 10 MG/ML VL IV ONE (20:23)
[2025-03-06] MEDS: MELATONIN 5 MG TAB PO ONE (22:34)
[2025-03-07 01:00] VITALS: BP 100/65; PULSE 60; RESP 18; TEMP 97.1; O2SAT 98
[2025-03-07 05:00] VITALS: BP 106/64; PULSE 60; RESP 18; TEMP 97.3; O2SAT 98
[2025-03-07 06:40] LABS: Hemoglobin 11.2 g/dL (13.5-17.5)
[2025-03-07 06:43] LABS: Hematocrit 32.9 % (41.0-53.0); Mean Corpuscular Hemoglobin 34.0 pg (28.0-32.0); Mean Corpuscular Volume 100.3 fL (80.0-100.0); Nucleated Red Blood Cells % 0.1 %
[2025-03-07] MEDS ORDERED: ERGO1CAP23 PO (06:53)
[2025-03-07] MEDS ORDERED: AUG875T PO (06:53)
[2025-03-07 07:24] LABS: Anion Gap 11 (5-15)
[2025-03-07 07:28] LABS: Calcium 8.3 mg/dL (8.7-10.4); Carbon Dioxide 26 mmol/L (20-31); Chloride 105 mmol/L (98-107); Potassium 4.3 mmol/L (3.5-5.1); Sodium 142 mmol/L (136-145)
[2025-03-07 07:29] LABS: BUN/Creatinine Ratio 7.2 (10.0-20.0); Glucose 105 mg/dL (74-106)
[2025-03-07 07:30] LABS: Blood Urea Nitrogen 6 mg/dL (9-23)
[2025-03-07 08:00] VITALS: BP 107/67; PULSE 58; RESP 18; TEMP 97.7; O2SAT 94
--- NOTE | 2025-03-07 11:06 | DVHPN2 ---
Subjective Date Seen: Mar 06, 2025 Post op day Post op day: 1 Patient reports: No new complaints, Feels better Nursing reports: No new complaints General: Normal HNT: Normal Cardiovascular: Normal Respiratory: Normal Gastrointestinal: Normal Genitourinary: Normal Musculoskeletal: Normal Neurological: Normal Objective Vitals Vital Sign Date Time Temp Pulse Resp B/P (MAP) Pulse Ox O2 Delivery O2 Flow Rate FiO2 03/06/25 09:03 98.0 67 20 130/80 (97) 98 98.0 03/05/25 20:00 Room Air* 0 21 Total Intake and Output 03/05/25 03/05/25 03/06/25 15:00 23:00 07:00 Intake Total 100 ml 375 ml 400 ml Output Total 0 ml 450 ml 250 ml Balance 100 ml -75 ml 150 ml Medications Current Medications Medications Dose Ordered Sig/Bailey Route Start Time Stop Time Status Last Admin Dose Admin Acetaminophen 650 mg Q6HP PRN PO 03/03/25 15:00 Acetaminophen/ Hydrocodone Bitart 1 tab Q4HP PRN PO 03/03/25 15:00 03/06/25 01:41 1 TAB Piperacillin Sod/ Tazobactam Sod 100 ml @ 25 mls/hr Q6H IV 03/03/25 23:00 03/06/25 04:54 25 MLS/HR Hydromorphone HCl 0.25 mg Q6HP PRN IV 03/03/25 19:00 03/05/25 06:52 0.25 MG Ergocalciferol 50,000 unit Q7D PO 03/04/25 09:15 03/04/25 10:12 50,000 UNIT Potassium Chloride/Dextrose/ Sod Cl 1,000 ml @ 120 mls/hr Q8H20M IV 03/05/25 10:30 03/06/25 03:10 120 MLS/HR General: Normal Head/Eyes: Normal ENT: Normal Neck: Normal, Supple Lungs: Normal, Normal inspection Cardiovascular: Normal, Regular rate and rhythm, Normal heart sound Heart Murmur: no murmur Abdominal: Normal, Soft, Normal inspection Musculoskeletal: Normal Extremities: Normal Neurological: Normal, CNII-XII Intact Labs and Microbiology Laboratory Tests 03/06/25 04:29 Test 03/06/25 04:29 Range/Units Serum Glucose 147 H 74-106 mg/dL Ass/Plan Labs and/or images reviewed: Labs reviewed by me, Image(s) reviewed by me Problem List Acute abdominal pain likely due to acute cholecystitis Acute cholecystitis Hyperbilirubinemia Ruled out acute pancreatitis Status post appendectomy 18 years ago -CT scan of the abdomen showed Distended gallbladder with pericholecystic fat stranding could be cholecystitis -gallbladder ultrasound is also suggesting findings of acute cholecystitis -IV fluids at 100 cc/hour - IV antibiotics Zosyn -surgical consult for cholecystectomy-ordered MRCP- Thick-walled distended gallbladder without gallstones and with surrounding edema again making it difficult to exclude acute acalculous cholecystitis - CBD is normal in diameter with no stone or other obstructing lesion. -pain medications -placed patient NPO -HIDA scan showed Nonvisualization of the gallbladder at 4 hours. This is consistent with acute cholecystitis. -patient scheduled for surgery today Vitamin D deficiency -supplemented with Vit D50,000 units po daily for 1 week Goals of care discussed with the patient at bedside, FULL CODE Plan discussed with Dr. Upton Assessment/Plan patient states feeling better alot better compared to before surgery abdomen soft, non distended, appropriately tender SOO drain serous sanguinous fluid about 15cc tolerating diet, denies nausea or vomiting Patient ambulate outside of room wait for pending labs before plan of discharge advance diet as tolerated wear abdominal binder as needed for comfort may shower in 48 hours Prognosis: Excellent Plan discussed with patient, Dr. Lancaster Visit Coding Surgery Date of Service if different f: Mar 06, 2025 Billing Provider: CURLY LANCASTER MD Surgery Visit Codes: [id number] INP/OBS CARE(HIGH) FREDDY ISRAEL BDR Mar 06, 2025 10:09
--- NOTE | 2025-03-07 11:18 | DVHPNRES ---
Progress Note Date Seen: Mar 06, 2025 Resident Creating Document: JAZZ MENDEZ RESIDENT Medical Necessity Reason Pt with a Central, PICC or Fol: No Subjective Review of Systems Waqar Emery is a 49-year old with no past medical history who came to the ER with the chief complaint of acute abdominal pain. Patient states that he has had the abdominal pain for a few weeks, it comes and goes but isn't increased in intensity 2 days back. Pain is 10/10 in intensity, in the epigastric region radiating towards the back, associated with nausea and 3 episodes of vomiting. Patient had chills but denies fever. He states he also had shortness of breath while taking deep breaths , which gets worse after eating. CT scan of the abdomen showed possible signs of cholecystitis which were confirmed with gallbladder ultrasound. Liver US showed Moderate gallbladder sludge with gallbladder wall thickening and positive reported sonographic archuleta's sign. No gallstone seen. MRCP showed CBD is normal in diameter with no stone or other obstructing lesion, Thick-walled distended gallbladder without gallstones and with surrounding edema again making it difficult to exclude acute acalculous cholecystitis and Mild splenomegaly. Surgical consult was done, pending evaluation by them. Past medical history: none Past surgical history: appendectomy 18 years ago Social & Personal history: lives at home with family Smoking: denies Alcohol: ocassional intake Drugs:denies Allergies: no known allergies Patient seen and examined at bedside. Patient is alert and oriented to time, place person and responding to all questions. Eyes: No Pain, No Vision change, No Conjunctivae inflammation, No Eyelid inflammation, No Redness ENT: No Ear pain, No Ear discharge, No Nose pain, No Nose discharge, No Nose congestion, No Mouth pain, No Mouth swelling, No Throat pain, No Throat swelling Cardiovascular: No Chest Pain, No Palpitations, No Orthopnea, No Paroxysmal No Dyspnea, No Edema, No Lt Headedness Respiratory: No Cough, No Dry, No Shortness of breath, No SOB with exertion, No Wheezing, No Hemoptysis, No Pleuritic Pain, No Sputum Gastrointestinal: Nausea, Vomiting,Abdominal Pain, No Diarrhea, No Constipation, No Melena, No Hematochezia Genitourinary: No Dysuria, No Frequency, No Incontinence, No Hematuria, No Retention 03/05/25- The patient was seen at bedside today. All labs and charts were reviewed. The patient complained of intense right-sided abdominal pain. The patient is due for surgery today. 03/06/25- The patient was seen at bedside today. Patient is doing well post lap cholecystectomy on 03/05/25. He states his pain is better than before the surgery and he is passing gas. Patient is tolerating full liquid diet without any nausea and vomiting. Possible discharge tomorrow was discussed with the patient as he had gangrenous cholecystitis. Objective vital signs Vital Sign Date Time Temp Pulse Resp B/P (MAP) Pulse Ox O2 Delivery O2 Flow Rate FiO2 03/06/25 12:52 98.3 65 17 112/72 (85) 98 98.3 03/06/25 08:00 Room Air* 0 21 Total Intake and Output 03/05/25 03/05/25 03/06/25 15:00 23:00 07:00 Intake Total 100 ml 375 ml 400 ml Output Total 0 ml 450 ml 250 ml Balance 100 ml -75 ml 150 ml medications Current Medications Medications Dose Ordered Sig/Bailey Route Start Time Stop Time Status Last Admin Dose Admin Acetaminophen 650 mg Q6HP PRN PO 03/03/25 15:00 Acetaminophen/ Hydrocodone Bitart 1 tab Q4HP PRN PO 03/03/25 15:00 03/06/25 14:29 1 TAB Piperacillin Sod/ Tazobactam Sod 100 ml @ 25 mls/hr Q6H IV 03/03/25 23:00 03/06/25 11:20 25 MLS/HR Hydromorphone HCl 0.25 mg Q6HP PRN IV 03/03/25 19:00 03/05/25 06:52 0.25 MG Ergocalciferol 50,000 unit Q7D PO 03/04/25 09:15 03/04/25 10:12 50,000 UNIT Potassium Chloride/Dextrose/ Sod Cl 1,000 ml @ 120 mls/hr Q8H20M IV 03/05/25 10:30 03/06/25 11:21 120 MLS/HR Examination General Appearance: Alert, Oriented X3, Cooperative, moderate distress HEENT: Atraumatic, PERRLA, EOMI, Mucous membr. moist/pink,scleral icterus bilateral eyes Respiratory: Clear to auscultation, Normal air movement Cardiovascular: Regular rate, Normal S1, Normal S2, No murmurs Abdominal: Normal bowel sounds, abdomen soft, non distended, mild tenderness, SOO drain with around 25 cc of sanguineous drainage Extremities: No clubbing, No cyanosis, No edema, Normal pulses, No tenderness/swelling Skin: No rashes, No breakdown, No significant lesion Neuro: Normal gait, Normal speech, Strength at 5/5 X4 ext, Normal tone, Sensation intact, Cranial nerves 3-12 NL, Reflexes 2+ Psych/Mental Status: Mental status NL, Mood NL laboratory and microbiology Laboratory Tests 03/06/25 04:29 Test 03/06/25 04:29 Range/Units Serum Glucose 147 H 74-106 mg/dL Microbiology Date/Time Source Procedure Growth Status 03/05/25 09:14 Gallbladder Fluid Gram Stain - Final Resulted 03/05/25 09:14 Gallbladder Fluid Anaerobic Culture - Preliminary Resulted 03/05/25 09:14 Gallbladder Fluid Aerobic Culture Pending Resulted Labs and/or images reviewed: Labs reviewed by me, Image(s) reviewed by me Problem List/Assessment/Plan Problem List/Assessment/Plan Acute abdominal pain likely due to acute cholecystitis s/p lap cholecystectomy day 1 Acute cholecystitis Hyperbilirubinemia Ruled out acute pancreatitis Status post appendectomy 18 years ago -CT scan of the abdomen showed Distended gallbladder with pericholecystic fat stranding could be cholecystitis -gallbladder ultrasound is also suggesting findings of acute cholecystitis -IV fluids at 100 cc/hour - IV antibiotics Zosyn -surgical consult for cholecystectomy-ordered MRCP- Thick-walled distended gallbladder without gallstones and with surrounding edema again making it difficult to exclude acute acalculous cholecystitis - CBD is normal in diameter with no stone or other obstructing lesion. -pain medications -placed patient NPO -HIDA scan showed Nonvisualization of the gallbladder at 4 hours. This is consistent with acute cholecystitis. -lap cholecystectomy on 03/05/25 -gangrenous cholecystitis with SOO drain placement Vitamin D deficiency -supplemented with Vit D50,000 units po daily for 1 week Goals of care discussed with the patient at bedside, FULL CODE Plan discussed with Dr. Malloy Plan discussed with: Patient Dietary Evaluation Review Comments: 1) Advance to low-fat diet when medically feasible 2) Encourage optimal PO intake 3) Follow-up with gastroenterology 4) Continue to monitor I&O, labs, and skin integrity Expected Outcomes/Goals: 1) appetite and labs to improve 2) diet to advance 3) f/u in 3-5 days Date of Service: Mar 06, 2025 Billing Provider: ROCÍO MALLOY MD Common Visit Codes: [id number] INP/OBS CARE(HIGH) JAZZ MENDEZ RESIDENT Mar 06, 2025 15:53 ROCÍO MALLOY MD Mar 06, 2025 22:37
[2025-03-07 11:21] VITALS: TEMP 36.5
--- NOTE | 2025-03-07 11:44 | DVHDSRES ---
Discharge Summary Date of Admission Resident Creating Document: JAZZ MENDEZ RESIDENT Mar 03, 2025 at 14:56 Date of Discharge: Mar 07, 2025 Labs/Diagnostic Data: Laboratory Results Test 03/07/25 05:02 03/06/25 04:29 03/04/25 15:08 03/03/25 14:07 White Blood Count 3.3 10^3/uL (4.4-10.8) Red Blood Count 3.28 10^6/uL (4.5-5.90) Hemoglobin 11.2 g/dL (13.5-17.5) Hematocrit 32.9 % (41.0-53.0) Mean Corpuscular Volume 100.3 fL (80.0-100.0) Mean Corpuscular Hemoglobin 34.0 pg (28.0-32.0) Mean Corpuscular Hemoglobin Concent 33.9 g/dL (32.0-36.0) Red Cell Distribution Width 13.3 % (11.8-14.3) Platelet Count 184 10^3/uL (140-450) Mean Platelet Volume 6.8 fL (6.9-10.8) Neutrophils (%) (Auto) 66.8 % (37.0-80.0) Lymphocytes (%) (Auto) 22.6 % (10.0-50.0) Monocytes (%) (Auto) 7.7 % (0.0-12.0) Eosinophils (%) (Auto) 2.5 % (0.0-7.0) Basophils (%) (Auto) 0.4 % (0.0-2.0) Neutrophils # (Auto) 2.2 10 ^3/uL (1.6-8.6) Lymphocytes # (Auto) 0.8 10 ^3/uL (0.4-5.4) Monocytes # (Auto) 0.3 10 ^3/uL (0-1.3) Eosinophils # (Auto) 0.1 10 ^3/uL (0-0.8) Basophils # (Auto) 0 10 ^3/uL (0-0.2) Nucleated Red Blood Cells 0.1 % Sodium Level 142 mmol/L (136-145) Potassium Level 4.3 mmol/L (3.5-5.1) Chloride Level 105 mmol/L (98-107) Carbon Dioxide Level 26 mmol/L (20-31) Anion Gap 11 (5-15) Blood Urea Nitrogen 6 mg/dL (9-23) Creatinine 0.83 mg/dL (0.700-1.30) Glomerular Filtration Rate Calc 109 mL/min (>90) BUN/Creatinine Ratio 7.2 (10.0-20.0) Serum Glucose 105 mg/dL (74-106) Calcium Level 8.3 mg/dL (8.7-10.4) Total Bilirubin 1.4 mg/dL (0.2-1.0) Prothrombin Time 11.6 sec (9.3-11.8) Prothrombin Time INR 1.11 (0.9-1.15) Activated Partial Thromboplast Time 32.9 SEC (24.5-34.5) Hemoglobin A1c < 3.8 % A1C (<5.7) Aspartate Amino Transferase (AST) 34 U/L (13-40) Alanine Aminotransferase (ALT) 47 U/L (7-40) Alkaline Phosphatase 84 U/L (46-116) Total Protein 7.4 g/dL (5.7-8.2) Albumin 4.7 g/dL (3.2-4.8) Triglycerides Level 69 mg/dL (< 150) Cholesterol Level 104 mg/dL (< 200) LDL Cholesterol 43 mg/dL (< 100) HDL Cholesterol 44 mg/dL (40-59) Lipase 34 U/L (12-53) Vitamin D 25-Hydroxy 12.2 ng/mL (30.0-100) Hepatitis A IgM Antibody Negative Hepatitis B Surface Antigen Negative (Negative) Hepatitis B Core IgM Antibody Negative (Negative) Hepatitis C Antibody Negative (Negative) Test 03/03/25 14:06 Urine Color [place] (Yellow) Urine Clarity Clear (Clear) Urine pH 6.0 (5.0-9.0) Urine Specific [place] 1.030 (1.001-1.035) Urine Protein Trace (Negative) Urine Ketones Negative (Negative) Urine Blood Negative /uL (Negative) Urine Nitrite Negative (Negative) Urine Bilirubin 1+ (Negative) Urine Urobilinogen 12 mg/dL (Negative) Urine Leukocyte Esterase Negative /uL (Negative) Urine RBC 1 /hpf (0 - 3) Urine Microscopic WBC 1 /HPF (0-3) Urine Squamous Epithelial Cells Few /hpf (<5) Urine Bacteria None seen /hpf (None Seen) Urine Mucus Few (None Seen) Urine Glucose Normal mg/dL (Normal) Urine Opiates Screen Pos (NEGATIVE) Urine Fentanyl Screen Neg (NEGATIVE) Urine Barbiturates Screen Pos (NEGATIVE) Urine Phencyclidine Screen Neg (NEGATIVE) Urine Amphetamines Screen Neg (NEGATIVE) Urine Benzodiazepines Screen Neg (NEGATIVE) Urine Cocaine Screen Neg (NEGATIVE) Urine Cannabinoids Screen Neg (NEGATIVE) Other Laboratory Tests 03/07/25 05:02 Brief Hx & Hospital Course: Quique Ramsay is a 49-year old male with no significant past medical history who came to the ER with the chief complaint of acute abdominal pain. Patient stated that he has had the abdominal pain for a few weeks, it comes and goes but increased in intensity 2 days back. Pain is 10/10 in intensity, in the epigastric region radiating towards the back, associated with nausea and 3 episodes of vomiting. Patient had chills but no fever. He stated he also had shortness of breath while taking deep breaths , which got worse after eating. CT scan of the abdomen showed possible signs of cholecystitis which were confirmed with gallbladder ultrasound. Liver US showed Moderate gallbladder sludge with gallbladder wall thickening and positive reported sonographic archuleta's sign. No gallstone seen. MRCP showed CBD is normal in diameter with no stone or other obstructing lesion, thick-walled distended gallbladder without gallstones and with surrounding edema again making it difficult to exclude acute acalculous cholecystitis and mild splenomegaly. HIDA scan showed Nonvisualization of the gallbladder at 4 hours,consistent with acute cholecystitis. Patient underwent lap cholecystectomy on 02/13/2025 with gangrenous cholecystitis and OSO drain was placed. He had an uncomplicated perioperative course. In the next 2 days, the patient stated that his abdominal pain had reduced considerably, SOO drain collected minimal serosanguineous fluid, wounds were clean, dry and intact and patient passed gas and had a bowel movement. Patient was discharged home in a stable condition on oral antibiotics for 7 days after being cleared by surgeon. All medications and recommendations were thoroughly explained to the patient and he demonstrated understanding of the same. He was explained about how to care for the drain and was asked to follow-up with surgery outpatient in 7-10 days. Past medical history: none Past surgical history: appendectomy 18 years ago Social & Personal history: lives at home with family Smoking: denies Alcohol: ocassional intake Drugs:denies Allergies: no known allergies General Appearance: Alert, Oriented X3, Cooperative, moderate distress HEENT: Atraumatic, PERRLA, EOMI, Mucous membr. moist/pink,scleral icterus bilateral eyes Respiratory: Clear to auscultation, Normal air movement Cardiovascular: Regular rate, Normal S1, Normal S2, No murmurs Abdominal: Normal bowel sounds, abdomen soft, non distended, mild tenderness, SOO drain with around 15 cc of sanguineous drainage,wound clean,dry and intact with no discharge Extremities: No clubbing, No cyanosis, No edema, Normal pulses, No tenderness/swelling Skin: No rashes, No breakdown, No significant lesion Neuro: Normal gait, Normal speech, Strength at 5/5 X4 ext, Normal tone, Sensation intact, Cranial nerves 3-12 NL, Reflexes 2+ Psych/Mental Status: Mental status NL, Mood NL Operations or Procedures 1.PROCEDURE(s): ABPL - CT AB PEL WO CON-NO ORAL OR IV REASON: R/o pancreatitis ORDER NUMBER(s): [id number], ACCESSION NUMBER(s): [id number] CT CT AB PEL WO CON-NO ORAL OR IV INDICATION: R/o pancreatitis EXAM DATE: 03/03/2025 01:48 PM COMPARISON: None RADIATION DOSE: CTDIvol: 7 mGy, DLP: 415 mGy*cm PROCEDURE: Helical CT images were obtained of the abdomen and pelvis without IV contrast Sagittal and coronal reconstructions are provided. ORAL CONTRAST: None. ADDITIONAL IMAGES / REFORMATS: None All CT scans at this medical facility are performed using dose modulation techniques as appropriate to a performed exam including the following: Automated exposure control was utilized; adjustment of the MA and/or KV according to patient size; and use of iterative reconstruction technique. FINDINGS: LUNG BASE: Normal. LIVER: Normal. GALLBLADDER AND BILIARY TREE: Distended gallbladder with pericholecystic fat stranding could be cholecystitis. No intra- or extrahepatic biliary ductal dilation. PANCREAS: Normal. SPLEEN: Normal. BOWEL: Normal. ADRENALS: Normal. KIDNEYS AND URETER: Punctate nonobstructive left kidney stone. BLADDER: Normal. REPRODUCTIVE ORGANS: Normal. LYMPH NODES:No lymphadenopathy. PERITONEUM: No ascites or free air. No other fluid collection. VESSELS: Scattered atherosclerotic calcifications are noted. RETROPERITONEUM: Normal. ABDOMINAL WALL: Normal. BONES: Scattered osseous degenerative changes are noted. IMPRESSION: Distended gallbladder with pericholecystic fat stranding could be cholecystitis. Consider US scan for further evaluation. Punctate nonobstructive left kidney stone. 2.PROCEDURE(s): ABDC - ABDOMEN COMPLETE SONOGRAM REASON: Possible cholecystitis ORDER NUMBER(s): [id number], ACCESSION NUMBER(s): [id number] CLINICAL HISTORY: Possible cholecystitis TECHNIQUE: Complete ultrasound exam of the abdomen was performed. COMPARISON: None FINDINGS: The liver is increased in echogenicity with no focal parenchymal abnormality. The liver measures 16.3 cm. The common duct is 5 mm. The gallbladder contains sludge with moderate wall thickening. The sonographic archuleta's sign is reported to be present. The partially visualized pancreas is within normal limits. No ascites or fluid collection. The right kidney is 11.8 cm and the left kidney is 11.7 cm. No increased echogenicity, shadowing stone, or focal lesion. Mild right renal pelvicaliectasis. Spleen is within normal limits. The aorta and IVC are normal caliber and patent. IMPRESSION: Moderate gallbladder sludge with gallbladder wall thickening and positive reported sonographic archuleta's sign. No gallstone seen. Consider HIDA and correlation with CT for more definitive diagnosis. Mild right renal pelvicaliectasis. 3.PROCEDURE(s): MRCP - MRCP MRI REASON: R/O Choledocolithiasis ORDER NUMBER(s): [id number], ACCESSION NUMBER(s): [id number] MRCP without contrast HISTORY: R/O Choledocolithiasis. Right upper quadrant pain. COMPARISON: Ultrasound from 03/03/2025. Technique: Multiplanar multisequence MRI images were obtained of the abdomen without intravenous contrast. Additional MIPS were obtained of the biliary system. FINDINGS: Bile ducts: -Intrahepatic ducts: Non-dilated. -Extrahepatic ducts: Non-dilated. -Common bile duct: Non-dilated. -Filling defects: No filling defects -Stricture: None. Gallbladder: No gallstones. Sludge in the gallbladder. Gallbladder distention. Diffuse gallbladder wall thickening. Mild edema. Pancreas: Pancreatic duct: No ductal dilatation. Lesions: None. Liver: Signal intensity: Homogenous. Contour: Smooth. Size: Normal. Lesions: No focal liver lesion. ADDITIONAL FINDINGS: Lung base: Normal. Pancreas: Normal. Spleen: Enlarged measuring 14.5 cm. Bowel: Normal. Adrenal glands:Normal. Kidneys and ureters:Normal. Lymph nodes:Normal. Peritoneum:Normal. Vessels: Normal. Abdominal wall: Normal. Bone: No aggressive bone lesions IMPRESSION: CBD is normal in diameter with no stone or other obstructing lesion. Thick-walled distended gallbladder without gallstones and with surrounding edema again making it difficult to exclude acute acalculous cholecystitis. Mild splenomegaly. 4.PROCEDURE(s): GBNM - NM HIDA SCAN REASON: r/o cholecystitis ORDER NUMBER(s): [id number], ACCESSION NUMBER(s): [id number] NUCLEAR MEDICINE HEPATOBILIARY SCAN REASON FOR EXAM: r/o cholecystitis. Right upper quadrant pain. RADIOPHARMACEUTICAL: 4.1 mCi Tc-99m mebrofenin, IV AUTHORIZED USER: Kobe Bergman M.D. TECHNIQUE: Following the intravenous administration of 4.1 mCi Tc-99m mebrofenin, sequential images were obtained every 2 minutes over the abdomen for sixty minutes. Right lateral, left lateral, and anterior planar 4 hour delayed images were also acquired. FINDINGS: There is prompt, uniform accumulation of tracer by the liver. There is normal filling of the intrahepatic ducts and common bile duct. There is normal excretion of tracer into the duodenum. The gallbladder does not fill with radiotracer on initial images or on the 4 hour delayed images. IMPRESSION: Nonvisualization of the gallbladder at 4 hours. This is consistent with acute cholecystitis. 5.Patient: QUIQUE RAMSAY Acct: [id number] : 1975 Loc: [facility] Age/Sex: 49/M Room: 0215 / Bed: A Attending Phy: JAZZ MENDEZ RESIDENT DATE OF SURGERY: 03/05/2025 PREOPERATIVE DIAGNOSES: Cholecystitis. POSTOPERATIVE DIAGNOSES: Gangrenous cholecystitis and cholelithiasis. SURGEON: Burt Lancaster MD SENIOR PRODUCT DEVELOPMENT MANAGER: Berhane Wong NP ANESTHESIA: General endotracheal, Dr. Dowd. PROCEDURES: * Laparoscopy. * Laparoscopic cholecystectomy. DESCRIPTION OF PROCEDURE: Under general endotracheal anesthesia with the patient's skin prepped and draped, a supraumbilical incision was made and a Veress needle inserted by the hanging drop technique in order to establish pneumoperitoneum to 15 mmHg pressure by insufflation with carbon dioxide. With the abdomen fully distended, the needle was removed and replaced with a 5-mm trocar port, which was used for insertion of a 0-degree viewing laparoscope. Under direct vision, additional 5 and 10-mm ports were inserted through the right anterior axillary line at the level of the umbilicus and subxiphoid incision respectively. Instrumentation was introduced and laparoscopy was conducted revealing gangrenous cholecystitis with much surrounding inflammatory changes. There was no evidence of any unassociated pathology in the peritoneal cavity on the serosal surfaces visualized. The gallbladder was aspirated of inspissated bile, which was sent for cultures and sensitivities, and subsequently, the gallbladder was grasped with a grasping forceps and placed on tension. Much inflammation and necrotic wall were present. The inflammatory tissue was stripped away from the infundibular portion of the gallbladder. Cystic duct and cystic artery were identified, circumferentially dissected, traced into the hepatocystic triangle just to minimize the potential for inadvertent injury to the common bile duct. Cystic duct and cystic artery were then divided between metallic clips close to the gallbladder, again attempting to avoid inadvertent injury to the common bile duct. Following division of the cystic duct and cystic artery, the gallbladder was resected from its liver bed. The gallbladder was gangrenous and almost entirely intrahepatic. The intrahepatic nature of the gallbladder resulted in denuding of some liver parenchyma, which necessitated placement of a 10-mm Amilcar Valera drain underneath the right lobe of the liver at the termination of the procedure. The fully mobilized gallbladder was removed from the peritoneal cavity through the subxiphoid incision. Subsequently, the right upper quadrant was profusely irrigated. Irrigant was aspirated. Hemostasis was accomplished and was assisted by use of hemostatic SNoW into the liver bed of the gallbladder. A 10-mm Amilcar-Valera drain was placed underneath the right lobe of the liver and exteriorized through the 5-mm trocar port site. The drain was secured with a 2-0 nylon suture. Following assurance of complete hemostasis, the instrumentation was withdrawn. Pneumoperitoneum was evacuated. The fascial defect was closed using 0 Vicryl. The wounds were approximated using Monocryl sutures, Dermabond glue, and Steri-Strips. The patient remained stable throughout the procedure, left the operating room following an accurate needle and sponge counts. The patient's friend, Gunner, was thoroughly informed at [phone]. Burt Lancaster MD PF/SAG Condition at Discharge: Fair Final Diagnosis/Problems List Acute intractable abdominal pain likely due to acute cholecystitis s/p lap cholecystectomy Acute cholecystitis Hyperbilirubinemia Ruled out acute pancreatitis Status post appendectomy 18 years ago Vitamin D deficiency Discharge Disposition: Home Discharge Instruct/Medications Diet: Regular Activity: No Restrictions, As Tolerated Follow Up/Referral: Follow up with surgery in 1 week Follow up with PCP in 1-2 weeks Medications: Augmentin 500mg po for 7 days [place] 5 for 7 days Scheduled Amoxicillin & Pot Clavulanate (Augmentin Tablet), 875 MG PO BID Ergocalciferol (Vitamin D 17872 Unit), 50,000 UNIT PO Q7D Scheduled PRN Hydrocodone-Acetaminophen (Hydrocodone Bitartrate/AC 5-325 mg), 1 TAB PO Q6HPRN PRN Discharge Statement: "Patient was advised to return to the ER or call 911 if any headaches, dizziness, shortness of breath, chest pain, abdominal pain, bleeding, fevers, or worsening of medical condition. Patient was counseled about treatment plan, medications, possible side effects, patientverbalized understanding. All questions were answered to the best of my ability. This discharge took greater then 30 minutes in planning, reviewing documentation, counseling the patient, and discussing with other team members." ASSESSMENT ASSESSMENT Assessment Acute abdominal pain likely due to acute cholecystitis s/p lap cholecystectomy day 2 Acute cholecystitis Hyperbilirubinemia Ruled out acute pancreatitis Status post appendectomy 18 years ago Vitamin D deficiency Date of Service: Mar 07, 2025 Billing Provider: ROCÍO MALLOY MD Common Visit Codes: [id number]/[id number] DISCH DAY >30min JAZZ MENDEZ RESIDENT Mar 07, 2025 11:13 ROCÍO MALLOY MD Mar 07, 2025 23:29
--- NOTE | 2025-03-07 12:07 | DVHPN2 ---
Subjective Date Seen: Mar 07, 2025 Post op day Post op day: 2 Patient reports: No new complaints, Feels better Nursing reports: No new complaints General: Normal HNT: Normal Cardiovascular: Normal Respiratory: Normal Gastrointestinal: Normal Genitourinary: Normal Musculoskeletal: Normal Neurological: Normal Objective Vitals Vital Sign Date Time Temp Pulse Resp B/P (MAP) Pulse Ox O2 Delivery O2 Flow Rate FiO2 03/07/25 11:21 36.5 03/07/25 08:00 58 18 107/67 (80) 94 03/07/25 07:35 Room Air* 0 21 Total Intake and Output 03/06/25 03/06/25 03/07/25 15:00 23:00 07:00 Intake Total 1100 ml 600 ml 400 ml Output Total 600 ml Balance 1100 ml 0 ml 400 ml Medications Current Medications Medications Dose Ordered Sig/Bailey Route Start Time Stop Time Status Last Admin Dose Admin Acetaminophen 650 mg Q6HP PRN PO 03/03/25 15:00 Acetaminophen/ Hydrocodone Bitart 1 tab Q4HP PRN PO 03/03/25 15:00 03/07/25 06:08 1 TAB Piperacillin Sod/ Tazobactam Sod 100 ml @ 25 mls/hr Q6H IV 03/03/25 23:00 03/07/25 10:20 25 MLS/HR Hydromorphone HCl 0.25 mg Q6HP PRN IV 03/03/25 19:00 03/05/25 06:52 0.25 MG Ergocalciferol 50,000 unit Q7D PO 03/04/25 09:15 03/04/25 10:12 50,000 UNIT Potassium Chloride/Dextrose/ Sod Cl 1,000 ml @ 120 mls/hr Q8H20M IV 03/05/25 10:30 03/07/25 04:34 120 MLS/HR General: Normal Head/Eyes: Normal ENT: Normal Neck: Normal, Supple Lungs: Normal, Normal inspection Cardiovascular: Normal, Regular rate and rhythm, Normal heart sound Heart Murmur: no murmur Abdominal: Normal, Soft, Normal inspection Musculoskeletal: Normal Extremities: Normal Neurological: Normal, CNII-XII Intact Labs and Microbiology Laboratory Tests 03/07/25 05:02 Test 03/07/25 05:02 Range/Units Serum Glucose 105 74-106 mg/dL Ass/Plan Labs and/or images reviewed: Labs reviewed by me, Image(s) reviewed by me Problem List Acute abdominal pain likely due to acute cholecystitis s/p lap cholecystectomy day 1 Acute cholecystitis Hyperbilirubinemia Ruled out acute pancreatitis Status post appendectomy 18 years ago -CT scan of the abdomen showed Distended gallbladder with pericholecystic fat stranding could be cholecystitis -gallbladder ultrasound is also suggesting findings of acute cholecystitis -IV fluids at 100 cc/hour - IV antibiotics Zosyn -surgical consult for cholecystectomy-ordered MRCP- Thick-walled distended gallbladder without gallstones and with surrounding edema again making it difficult to exclude acute acalculous cholecystitis - CBD is normal in diameter with no stone or other obstructing lesion. -pain medications -placed patient NPO -HIDA scan showed Nonvisualization of the gallbladder at 4 hours. This is consistent with acute cholecystitis. -lap cholecystectomy on 03/05/25 -gangrenous cholecystitis with SOO drain placement Vitamin D deficiency -supplemented with Vit D50,000 units po daily for 1 week Goals of care discussed with the patient at bedside, FULL CODE Plan discussed with Dr. Upton Assessment/Plan patient states feeling better alot better compared to before surgery abdomen soft, non distended, appropriately tender SOO drain serous sanguinous fluid about 15cc tolerating diet, denies nausea or vomiting Patient ambulate outside of room wait for pending labs before plan of discharge advance diet as tolerated wear abdominal binder as needed for comfort may shower in 48 hours 03/07/25 SOO drain serous sanguinous fluid 15cc wounds clean, dry and intact abdomen soft , non distended, appropriately tender tolerating diet passing gas labs and notes reviewed Plan, patient ok to discharge per surgery point of view patient to follow up in clinic in 7-10 days Prognosis: Excellent Plan discussed with patient, Dr. Lancaster Visit Coding Surgery Date of Service if different f: Mar 07, 2025 Billing Provider: CURLY LANCASTER MD Surgery Visit Codes: [id number] INP/OBS CARE(HIGH) FREDDY ISRAEL NP Mar 07, 2025 12:07
[2025-03-07] MEDS ORDERED: HYDR-4902 PO (12:34)
== END 2025-03-07 12:18 | disposition home or self-care (01) | DRG 263 ==
LOC: ER 12:58 → OVERFLOW 14:56 → CENTRAL 21:03
PROVIDERS: ADMIT Internal Medicine; ATTEND Internal Medicine
PROC: 0FT44ZZ Resection of Gallbladder, Percutaneous Endoscopic Approach (ICD-10-PCS; principal; 2025-03-05 08:51)
DX: K80.00 Calculus of gallbladder with acute cholecystitis without obstruction (principal); K82.A1 Gangrene of gallbladder in cholecystitis; I10 Essential (primary) hypertension; E55.9 Vitamin D deficiency, unspecified; K59.00 Constipation, unspecified; R71.0 Precipitous drop in hematocrit; K82.8 Other specified diseases of gallbladder; Z80.0 Family history of malignant neoplasm of digestive organs; Z79.899 Other long term (current) drug therapy
CPT/HCPCS: 36415; 74176; 74181; 76700; 78226; 80048; 80053; 80061; 80074; 80307; 81001; 82247; 82306; 83036; 83690; 85025; 85610; 85730; 86850; 86900; 86901; 87070; 87075; 87205; G0378; J0131; J1100; J2003; J2250; J2405; J2543; J2704; J3490

== ENCOUNTER 2025-03-25 12:26 | Inpatient (IN) | payer MEDICAID ==
[~2025-03-25] VITALS: Ht 177.8 cm; Wt 78.7 kg
[~2025-03-25 12:26] MED LIST: AUG875T PO; ERGO1CAP23 PO; HYDR-4902 PO
--- NOTE | 2025-03-25 13:42 | ED.PDOC ---
GI ASSESSMENT HPI Comments Patient is a 49-year-old male with no past medical history who comes in due to abdominal pain ongoing for the past 2-3 hours. According to the patient, he underwent laparoscopic cholecystectomy on 03/05/2025 and was discharged home with a SOO drain, per patient, SOO drain was removed this a.m. around 8:00 a.m., shortly afterwards he had breakfast and approximately 30 minutes after breakfast his abdominal pain started, pain localized to the midepigastric and right upper quadrant. He describes the pain as sharp, burning and intermittent, 10/10 in intensity, worsened with eating and relieved by vomiting. Patient notes pain is associated with multiple episodes of vomiting, notes having similar symptoms of the time when he was diagnosed with cholecystitis. Patient was given 60 mg Toradol IM once and re-evaluated after 2 hours, noted minimal improvement in abdominal pain. Total bilirubin 3.8, AST 205, ALT 134 and ALT 165. MRCP was ordered for the patient. Chief Complaint: Abdominal Pain Time Seen by MD: 13:20 Allergies: Coded Allergies: NO KNOWN ALLERGIES (Unverified , 03/03/25) Home Meds Active Scripts Hydrocodone-Acetaminophen (Hydrocodone Bitartrate/AC 5-325 mg) 1 Tab Tab, 1 TAB PO Q6HPRN PRN, #20 TAB Prov:ROCÍO MALLOY MD 03/07/25 Ergocalciferol (VITAMIN D 12408 UNIT) 50,[address] [place], [address] UNIT PO Q7D for 10 Days, #10 CAP Prov:MICAELA ROONEY RESIDENT 03/07/25 Amoxicillin & Pot Clavulanate (AUGMENTIN TABLET) 875 Mg Tb, 875 MG PO BID for 7 Days, #14 TAB Prov:MICAELA ROONEY RESIDENT 03/07/25 Mode of Arrival: Ambulatory Past Medical History PAST MEDICAL HISTORY: Denies Surgical History: Appendectomy, Cholecystectomy Family History Family History: Family hx of Cancer Social History Smoker: Non-Smoker Alcohol: Denies ETOH Use Drugs: Denies Drug Use Lives In: Home Constitutional: denies: chills, diaphoresis, fatigue, fever, malaise, sweats, weakness, others EENTM: denies: blurred vision, double vision, ear bleeding, ear discharge, ear drainage, ear pain, ear ringing, eye pain, eye redness, hearing loss, mouth pain, mouth swelling, nasal discharge, nose bleeding, nose congestion, nose pain, photophobia, tearing, throat pain, throat swelling, voice changes, others Respiratory: denies: cough, hemoptysis, orthopnea, SOB at rest, shortness of breath, SOB with excertion, stridor, wheezing, others Cardiovascular: denies: chest pain, dizzy spells, diaphoresis, Dyspnea on exertion, edema, irregular heart beat, left arm pain, lightheadedness, palpitations, PND, syncope, others Gastrointestinal: reports: abdominal pain, nausea, vomiting; denies: abdomen distended, blood streaked bowels, constipated, diarrhea, dysphagia, difficulty swallowing, hematemesis, melena, poor appetite, poor fluid intake, rectal bleeding, rectal pain, others Genitourinary: denies: burning, dysuria, flank pain, frequency, hematuria, incontinence, penile discharge, penile sore, pain, testicle pain, testicle swelling, urgency, others Neurological: denies: dizziness, fainting, headache, left sided numbness, left sided weakness, numbness, paresthesia, pre-existing deficit, right sided numbness, right sided weakness, seizure, speech problems, tingling, tremors, weakness, others Musculoskeletal: denies: back pain, gout, joint pain, joint swelling, muscle pain, muscle stiffness, neck pain, others Integumetry: denies: bruises, change in color, change in hair/nails, dryness, laceration, lesions, lumps, rash, wounds, others Allergic/Immunocompromised: denies: Difficulty Healing, Frequent Infections, Hives, Itching, others Hematologic/Lymphatic: denies: anemia, blood clots, easy bleeding, easy bruising, swollen glands, others Endocrine: denies: excessive hunger, excessive sweating, excessive thirst, excessive urination, flushing, intolerance to cold, intolerance to heat, unexplained weight gain, unexplained weight loss, others Psychiatric: denies: anxiety, bipolar disorder, depression, hopeless, panic disorder, schizophrenia, sleepless, suicidal, others Physical Exam General Appearance: Mild Distress, Normal HEENT: Normal ENT Inspection, PERRL/EOMI Neck: Full Range of Motion, Non-Tender, Normal Respiratory: Lungs Clear, No Respiratory Distress, Normal Breath Sounds Cardiovascular: No Murmur, No Gallop, Regular Rate/Rhythm Breast Exam: Deferred Gastrointestinal: Diffuse, Epigastric, Tenderness, Other (Minimal swelling noted along the entry site of SOO drain incision RUQ) Genitalia: Deferred Pelvic: Deferred Rectal: Rectal Exam not done Extremities: No calf tenderness, No pedal edema Neurologic: Alert, Normal Affect, No Sensory Deficits Cerebellar Function: Normal Reflexes: NOT DONE Skin: Dry, None, Normal Color Peripheral Pulses: 2+ dorsalis pedis (R), 2+ dorsalis pedis (L) Lymphatic: NOT DONE Was a procedure done? Was a procedure done?: No GI differential Dx Differential Diagnosis: Cholangitis, Pancreatitis Other Differential Diagnosis Post cholecystectomy pain syndrome X-Ray, Labs, Meds, VS Vital Signs Date Time Temp Pulse Resp B/P (MAP) Pulse Ox O2 Delivery O2 Flow Rate FiO2 03/25/25 12:41 98.0 91 18 121/85 96 98.0 Lab Test 03/25/25 14:08 Range/Units White Blood Count 8.1 4.4-10.8 10^3/uL Red Blood Count 4.75 4.5-5.90 10^6/uL Hemoglobin 15.6 13.5-17.5 g/dL Hematocrit 44.8 41.0-53.0 % Mean Corpuscular Volume 94.4 80.0-100.0 fL Mean Corpuscular Hemoglobin 32.8 H 28.0-32.0 pg Mean Corpuscular Hemoglobin Concent 34.7 32.0-36.0 g/dL Red Cell Distribution Width 13.6 11.8-14.3 % Platelet Count 187 140-450 10^3/uL Mean Platelet Volume 6.9 6.9-10.8 fL Neutrophils (%) (Auto) 88.4 H 37.0-80.0 % Lymphocytes (%) (Auto) 6.5 L 10.0-50.0 % Monocytes (%) (Auto) 4.1 0.0-12.0 % Eosinophils (%) (Auto) 0.5 0.0-7.0 % Basophils (%) (Auto) 0.5 0.0-2.0 % Neutrophils # (Auto) 7.2 1.6-8.6 10 ^3/uL Lymphocytes # (Auto) 0.5 0.4-5.4 10 ^3/uL Monocytes # (Auto) 0.3 0-1.3 10 ^3/uL Eosinophils # (Auto) 0 0-0.8 10 ^3/uL Basophils # (Auto) 0 0-0.2 10 ^3/uL Nucleated Red Blood Cells 0.2 % Sodium Level 144 136-145 mmol/L Potassium Level 4.1 3.5-5.1 mmol/L Chloride Level 103 98-107 mmol/L Carbon Dioxide Level 31 20-31 mmol/L Anion Gap 10 5-15 Blood Urea Nitrogen 11 9-23 mg/dL Creatinine 0.89 0.700-1.30 mg/dL Glomerular Filtration Rate Calc 106 >90 mL/min BUN/Creatinine Ratio 12.4 10.0-20.0 Serum Glucose 105 74-106 mg/dL Calcium Level 9.9 8.7-10.4 mg/dL Total Bilirubin 3.8 H 0.2-1.0 mg/dL Aspartate Amino Transferase (AST) 205 H 13-40 U/L Alanine Aminotransferase (ALT) 134 H 7-40 U/L Alkaline Phosphatase 165 H 46-116 U/L Total Protein 7.9 5.7-8.2 g/dL Albumin 4.8 3.2-4.8 g/dL Lipase 41 12-53 U/L Current Medications Medications (Trade) Dose Ordered Sig/Bailey Route Start Time Stop Time Status Last Admin Ketorolac Tromethamine (Toradol Injection) 60 mg ONCE ONCE IM 03/25/25 13:45 03/25/25 13:48 DC 03/25/25 13:45 Time of 1ST Reevaluation: 14:35 Reevaluation 1ST: Unchanged Time of 2ND Reevaluation: 15:15 Reevaluation 2ND: Unchanged Patient Education/Counseling: Diagnosis, Treatment, Prognosis, Need For Follow Up Family Education/Counseling: No Family Present SEPSIS Sepsis Screen Date sepsis recognized/suspect: Mar 25, 2025 Time Sepsis recognized/suspect: 1245 Recent Procedure: No On Antibiotic Therapy: No Respiratory Rate >20: No Heart Rate >90: Yes Temp<36 C (96.8 F) or >38.3 C: No SBP <90 or MAP <65 mmHG: No New Acute Mental Status Change: No Is the patient on CPAP, BIPAP,: No Physician Orders Abdomen Limited (03/25/25 13:40) Mrcp Mri (03/25/25 15:07) Vital Signs Date Time Temp Pulse Resp B/P (MAP) Pulse Ox O2 Delivery O2 Flow Rate FiO2 03/25/25 12:41 98.0 91 18 121/85 96 98.0 Laboratory Tests Test 03/25/25 14:08 White Blood Count 8.1 10^3/uL (4.4-10.8) Medications Medications Dose Ordered Sig/Bailey Route Start Time Stop Time Status Last Admin Dose Admin Ketorolac Tromethamine 60 mg ONCE ONCE IM 03/25/25 13:45 03/25/25 13:48 DC 03/25/25 13:45 Departure 1 Departure Time of Disposition: 15:20 Impression: Primary Impression: Acute pancreatitis Additional Impressions: Non-specific colitis Post-cholecystectomy syndrome Cholangitis Disposition: ADMITTED INPATIENT Condition: Guarded Critical Care Note Critical Care Time?: No Stability Stability form required: ROLA Wylie RESIDENT Mar 25, 2025 13:42
[2025-03-25] MEDS: KETOROLAC TROMETH 60MG/2ML VIAL IM ONE (13:45)
--- NOTE | 2025-03-25 14:11 | DVH ---
INDICATION: s/p lap saji, RUQ pain TECHNIQUE: Multiple real-time sonographic images were obtained of the right upper quadrant. COMPARISON: US ABDOMEN COMPLETE SONOGRAM on DOS: 03/03/25 FINDINGS: The liver demonstrates increased echotexture without focal mass lesions. The liver measures 16 cm. There is no intrahepatic or extrahepatic ductal dilatation. The common duct measures 5 mm. Status post cholecystectomy. The right kidney measures 12 cm. The right kidney is normal in contour, size, and shape. The echogenicity is normal. There is no hydronephrosis. The pancreas is not well visualized due to overlying bowel gas. IMPRESSION: Status post cholecystectomy. No organized fluid collection is visualized in the gallbladder fossa.
[2025-03-25 14:24] LABS: Hematocrit 44.8 % (41.0-53.0); Hemoglobin 15.6 g/dL (13.5-17.5); Mean Corpuscular Hemoglobin 32.8 pg (28.0-32.0); Mean Corpuscular Volume 94.4 fL (80.0-100.0); Nucleated Red Blood Cells % 0.2 %
[2025-03-25 14:45] LABS: Albumin 4.8 g/dL (3.2-4.8); Anion Gap 10 (5-15); BUN/Creatinine Ratio 12.4 (10.0-20.0); Blood Urea Nitrogen 11 mg/dL (9-23); Calcium 9.9 mg/dL (8.7-10.4); Carbon Dioxide 31 mmol/L (20-31); Chloride 103 mmol/L (98-107); Glucose 105 mg/dL (74-106); Lipase 41 U/L (12-53); Potassium 4.1 mmol/L (3.5-5.1); Sodium 144 mmol/L (136-145); Total Protein 7.9 g/dL (5.7-8.2)
[2025-03-25 14:46] LABS: Alanine Aminotransferase 134 U/L (7-40); Alkaline Phosphatase 165 U/L (46-116); Bilirubin, Total 3.8 mg/dL (0.2-1.0)
[2025-03-25 17:28] LABS: Urine Protein, UAD TRACE (Negative)
--- NOTE | 2025-03-25 18:02 | DVH ---
EXAM: MRI MRCP MRI HISTORY: s/p lap saji, r/o CBD dilation COMPARISON: MRI MRCP MRI on DOS: 03/04/25 TECHNIQUE: Multiplanar, multisequence imaging of the abdomen was performed without contrast. FINDINGS: [LOWER CHEST]: No pleural effusion. [LIVER]: The liver is normal in size without focal lesions. Normal liver contour. [SPLEEN]: Unremarkable. [PANCREAS]: The pancreas is normal in appearance without focal lesions. Normal pancreatic duct size. [GALLBLADDER AND DUCTS]: Postsurgical change related to recent cholecystectomy. No abnormal dilation of the common bile duct. No definitive choledocholithiasis. Poor visualization of the cystic duct likely related to surgical clipping. [ADRENAL GLANDS]: Unremarkable. [KIDNEYS]: Normal enhancement without suspicious lesions or hydronephrosis. [VISUALIZED BOWEL]: Grossly unremarkable. [VASCULATURE]: Unremarkable. [LYMPHADENOPATHY]: No evidence for lymphadenopathy. [ASCITES]: Absent. [MUSCULOSKELETAL]: Bone marrow signal is normal. [OTHER]: None IMPRESSION: 1. No abnormal dilation of the common bile duct. 2. No definitive choledocholithiasis. 3. No abnormal fluid collection.
[2025-03-25] MEDS ORDERED: MORPHINE SULFATE INJ 2 MG/ml SYRG IV PRN (18:30)
--- NOTE | 2025-03-25 19:08 | DVHHPRES ---
History of Present Illness Resident Creating Document: RULA BERGMAN RESIDENT History of Present Illness Patient is a 49-year-old male with no past medical history who comes in due to abdominal pain ongoing for the past 2-3 hours. According to the patient, he underwent laparoscopic cholecystectomy on 03/05/2025 and was discharged home with a SOO drain, per patient, SOO drain was removed this a.m. around 8:00 a.m., shortly afterwards he had breakfast and approximately 30 minutes after breakfast his abdominal pain started, pain localized to the midepigastric and right upper quadrant. He describes the pain as sharp, burning and intermittent, 10/10 in intensity, worsened with eating and relieved by vomiting. Patient notes pain is associated with multiple episodes of vomiting, notes having similar symptoms of the time when he was diagnosed with cholecystitis. Past Medical History Denies Past Surgical History: Appendectomy, Cholecystectomy Family History: None Smoke: No ALCOHOL: none Drugs: None Review of Systems Review of Systems Reports to be feeling better since he with the pain medication in the hospital Still has mild diffuse abdominal discomfort Denies nausea or vomiting No fever, chills Allergies: Coded Allergies: NO KNOWN ALLERGIES (Unverified , 03/03/25) Medications Current Medications Medications Dose Ordered Sig/Bailey Route Start Time Stop Time Status Last Admin Dose Admin Ondansetron HCl 4 mg Q6HPRN PRN IV 03/25/25 18:30 Pantoprazole Sodium 40 mg DAILY@0600 PO 03/26/25 06:00 Acetaminophen/ Hydrocodone Bitart 1 tab Q6HPRN PRN PO 03/25/25 18:30 Morphine Sulfate 2 mg Q6HPRN PRN IV 03/25/25 18:30 Exam Vital Signs Vital Signs Date Time Temp Pulse Resp B/P (MAP) Pulse Ox O2 Delivery O2 Flow Rate FiO2 03/25/25 12:41 98.0 91 18 121/85 96 98.0 Exam Gen - no pallor, no scleral icterus Skin - Patients skin is warm and dry. HEENT - normocephalic, atraumatic, dry mucous membranes. Neck - supple, no lymphadenopathy Pulmonary - B/L equal air entry with vesicular breath sounds cardiovascular - regular S1,S2 heard GI - soft abdomen with discomfort to palpation diffusely. Bowel sounds normoactive. Neurological - Patient is alert and oriented x4. No motor or sensory weakness Labs/Xrays Labs Test 03/25/25 17:04 03/25/25 14:08 Range/Units Urine Color Yellow Yellow Urine Clarity Clear Clear Urine pH 6.0 5.0-9.0 Urine Specific [place] 1.027 1.001-1.035 Urine Protein Trace H Negative Urine Ketones Negative Negative Urine Blood Negative Negative /uL Urine Nitrite Negative Negative Urine Bilirubin Negative Negative Urine Urobilinogen 2 H Negative mg/dL Urine Leukocyte Esterase Negative Negative /uL Urine RBC 1 0 - 3 /hpf Urine Microscopic WBC 2 0-3 /HPF Urine Squamous Epithelial Cells None seen <5 /hpf Urine Calcium Oxalate Crystals Few None Seen Urine Bacteria None seen None Seen /hpf Urine Mucus Few None Seen Urine Glucose Normal Normal mg/dL White Blood Count 8.1 4.4-10.8 10^3/uL Red Blood Count 4.75 4.5-5.90 10^6/uL Hemoglobin 15.6 13.5-17.5 g/dL Hematocrit 44.8 41.0-53.0 % Mean Corpuscular Volume 94.4 80.0-100.0 fL Mean Corpuscular Hemoglobin 32.8 H 28.0-32.0 pg Mean Corpuscular Hemoglobin Concent 34.7 32.0-36.0 g/dL Red Cell Distribution Width 13.6 11.8-14.3 % Platelet Count 187 140-450 10^3/uL Mean Platelet Volume 6.9 6.9-10.8 fL Neutrophils (%) (Auto) 88.4 H 37.0-80.0 % Lymphocytes (%) (Auto) 6.5 L 10.0-50.0 % Monocytes (%) (Auto) 4.1 0.0-12.0 % Eosinophils (%) (Auto) 0.5 0.0-7.0 % Basophils (%) (Auto) 0.5 0.0-2.0 % Neutrophils # (Auto) 7.2 1.6-8.6 10 ^3/uL Lymphocytes # (Auto) 0.5 0.4-5.4 10 ^3/uL Monocytes # (Auto) 0.3 0-1.3 10 ^3/uL Eosinophils # (Auto) 0 0-0.8 10 ^3/uL Basophils # (Auto) 0 0-0.2 10 ^3/uL Nucleated Red Blood Cells 0.2 % Sodium Level 144 136-145 mmol/L Potassium Level 4.1 3.5-5.1 mmol/L Chloride Level 103 98-107 mmol/L Carbon Dioxide Level 31 20-31 mmol/L Anion Gap 10 5-15 Blood Urea Nitrogen 11 9-23 mg/dL Creatinine 0.89 0.700-1.30 mg/dL Glomerular Filtration Rate Calc 106 >90 mL/min BUN/Creatinine Ratio 12.4 10.0-20.0 Serum Glucose 105 74-106 mg/dL Calcium Level 9.9 8.7-10.4 mg/dL Total Bilirubin 3.8 H 0.2-1.0 mg/dL Aspartate Amino Transferase (AST) 205 H 13-40 U/L Alanine Aminotransferase (ALT) 134 H 7-40 U/L Alkaline Phosphatase 165 H 46-116 U/L Total Protein 7.9 5.7-8.2 g/dL Albumin 4.8 3.2-4.8 g/dL Lipase 41 12-53 U/L SEPSIS Sepsis Screen Date sepsis recognized/suspect: Mar 25, 2025 Time Sepsis recognized/suspect: 1244 Recent Procedure: No On Antibiotic Therapy: No Respiratory Rate >20: No Heart Rate >90: Yes Temp<36 C (96.8 F) or >38.3 C: No SBP <90 or MAP <65 mmHG: No New Acute Mental Status Change: No Is the patient on CPAP, BIPAP,: No Physician Orders Abdomen Limited (03/25/25 13:40) Mrcp Mri (03/25/25 15:07) Nm Hida Scan (03/25/25 15:19) Admit (03/25/25 17:25) Notify Of Changes From Base (03/25/25 17:25) Automation Analyst For 24 Hours (03/25/25 17:25) Emergency Dysrhythmia Protocol (03/25/25 17:25) Stat Ekg For Chest Pain (03/25/25 17:25) Full Liq Diet (03/25/25 Dinner) Comprehensive Metabolic Panel (03/26/25 04:00) Complete Blood Count (03/26/25 04:00) PTPTT (03/26/25 04:00) Ondansetron Hcl (Zofran) (03/25/25 18:30) Pantoprazole Tablet (Protonix Tablet) (03/26/25 06:00) * Surgical Consult (03/25/25 ) Hydrocodone-Acet 5/325mg Tab ([place] 532 (03/25/25 18:30) Morphine Sulfate Injection (03/25/25 18:30) Sodium Chloride 0.9% (03/25/25 18:30) Vital Signs Date Time Temp Pulse Resp B/P (MAP) Pulse Ox O2 Delivery O2 Flow Rate FiO2 03/25/25 12:41 98.0 91 18 121/85 96 98.0 Laboratory Tests Test 03/25/25 14:08 White Blood Count 8.1 10^3/uL (4.4-10.8) Medications Medications Dose Ordered Sig/Bailey Route Start Time Stop Time Status Last Admin Dose Admin Ketorolac Tromethamine 60 mg ONCE ONCE IM 03/25/25 13:45 03/25/25 13:48 DC 03/25/25 13:45 60 MG Assessment/Plan Assessment/Plan Intractable abdominal pain S/p laparoscopic cholecystectomy Hyperbilirubinemia Jaundice Transaminitis - right upper quadrant ultrasound showed status post cholecystectomy, no organized fluid collection seen in the gallbladder fossa - MRCP showed no abnormal dilation of common bile duct, no definite choledocholithiasis, no abnormal fluid collection - full liquid diet - surgical consultation - Protonix Goals of care discussed with the patient for over 18 minutes. Full code Time spent: 32 minutes Plan discussed with Dr. Upton Plan discussed with: Patient, Other (RN) My Orders Orders - RULA BERGMAN RESIDENT Procedure Category Date Status Time Admit ADMIT 03/25/25 Transmitted 17:25 Notify Of Changes EUSEBIO 03/25/25 In Process From Base 17:25 Automation Analyst For EUSEBIO 03/25/25 In Process 24 Hours 17:25 Emergency Dysrhythmia EUSEBIO 03/25/25 In Process Protocol 17:25 Stat Ekg For Chest EUSEBIO 03/25/25 In Process Pain 17:25 Full Liq Diet DIET 03/25/25 Transmitted Dinner Comprehensive LAB 03/26/25 Verified Metabolic Panel 04:00 Complete Blood Count LAB 03/26/25 Verified 04:00 PTPTT LAB 03/26/25 Verified 04:00 Ondansetron Hcl PHA 03/25/25 In Process (Zofran) 18:30 Pantoprazole Tablet PHA 03/26/25 In Process (Protonix Tablet) 06:00 * Surgical Consult CONS 03/25/25 Transmitted Hydrocodone-Acet PHA 03/25/25 In Process 5/325mg Tab ([place] 18:30 Morphine Sulfate PHA 03/25/25 In Process Injection 18:30 Sodium Chloride 0.9% PHA 03/25/25 In Process 18:30 Date of Service: Mar 25, 2025 Billing Provider: ROCÍO UPTON MD Common Visit Codes: [id number] INP/OBS CARE (HIGH) Secondary Visit Codes: [id number] CARE PLAN 30 MINUTES RULA BERGMAN RESIDENT Mar 25, 2025 19:08 ROCÍO UPTON MD Mar 25, 2025 19:38
[2025-03-25] MEDS: PANTOPRAZOLE 40 MG TAB PO ONE (20:46)
[2025-03-25] MEDS: SODIUM CHLORIDE 0.9% 1,000 ML IV ONE (20:46)
[2025-03-25] MEDS: HYDROcodone-ACET 5/325MG TAB PO PRN (20:47)
[2025-03-26] VITALS (9 sets, daily range): BP systolic 101–130; BP diastolic 61–83; PULSE 62–76; RESP 12–20; TEMP 97.6–98.6; O2SAT 94–96
[2025-03-26 04:57] LABS: Hematocrit 40.5 % (41.0-53.0); Hemoglobin 14.0 g/dL (13.5-17.5); Mean Corpuscular Hemoglobin 32.4 pg (28.0-32.0); Mean Corpuscular Volume 94.0 fL (80.0-100.0); Nucleated Red Blood Cells % 0.1 %
[2025-03-26 05:18] LABS: Albumin 4.0 g/dL (3.2-4.8); Anion Gap 10 (5-15); BUN/Creatinine Ratio 12.9 (10.0-20.0); Blood Urea Nitrogen 11 mg/dL (9-23); Calcium 8.9 mg/dL (8.7-10.4); Carbon Dioxide 26 mmol/L (20-31); Chloride 106 mmol/L (98-107); Glucose 90 mg/dL (74-106); Potassium 3.7 mmol/L (3.5-5.1); Sodium 142 mmol/L (136-145); Total Protein 6.7 g/dL (5.7-8.2)
[2025-03-26 05:25] LABS: Alanine Aminotransferase 445 U/L (7-40); Alkaline Phosphatase 183 U/L (46-116); Bilirubin, Total 4.1 mg/dL (0.2-1.0)
[2025-03-26] MEDS: PANTOPRAZOLE 40 MG TAB PO SCH (05:34)
[2025-03-26 06:32] LABS: INR 1.03 (0.9-1.15); Partial Thromboplastin Time 29.3 SEC (24.5-34.5); Prothrombin Time 10.9 sec (9.3-11.8)
--- NOTE | 2025-03-26 12:07 | DVHPN2 ---
Progress Note Date Seen: Mar 26, 2025 Medical Necessity Reason Pt with a Central, PICC or Fol: No Objective vital signs Vital Sign Date Time Temp Pulse Resp B/P (MAP) Pulse Ox O2 Delivery O2 Flow Rate FiO2 03/26/25 09:00 98.1 70 16 108/61 (77) 95 98.1 03/26/25 00:23 Room Air* 0 21 Total Intake and Output 03/25/25 03/25/25 03/26/25 15:00 23:00 07:00 Intake Total 0 ml Balance 0 ml medications Current Medications Medications Dose Ordered Sig/Bailey Route Start Time Stop Time Status Last Admin Dose Admin Ondansetron HCl 4 mg Q6HPRN PRN IV 03/25/25 18:30 Pantoprazole Sodium 40 mg DAILY@0600 PO 03/26/25 06:00 03/26/25 09:25 40 MG Acetaminophen/ Hydrocodone Bitart 1 tab Q6HPRN PRN PO 03/25/25 18:30 03/26/25 06:20 1 TAB Morphine Sulfate 2 mg Q6HPRN PRN IV 03/25/25 18:30 laboratory and microbiology Laboratory Tests 03/26/25 04:01 Test 03/26/25 04:01 Range/Units Serum Glucose 90 74-106 mg/dL Problem List/Assessment/Plan Problem List/Assessment/Plan 03/26/25 patient admitted for abdominal pain which started after having his SOO drain removed in the clinic and after a large meal, his pain was "very similar to the ;pains he used to have before his cholecystectomy 3 weeks ago. priro r to the removal his drain had very small amount of non bilious drainage, on admission he was found to have elevated bilirubin and a ultrasound and MRI were ordered, I went to the radiologist's office to reviewed the imaging which was initially reported as normal and the second radiologist confirms no evidence of fluid collection,duct dilatation or choledocholithiasis HIDA scan is pending at this time, on examination the abdomen is non distended, non tender, work up continues.I answered patient's questions to his satisfaction, Plan discussed with: Patient CURLY WODOS MD Mar 26, 2025 12:07
--- NOTE | 2025-03-26 12:56 | DVH ---
Procedure: MD NM HIDA SCAN Exam Date: 03/26/2025 09:30 AM Clinical History: R/O bile leak / obstruction Comparison Study: [facility] HIDA SCAN on DOS: 03/04/25 Nuclear Medicine Hepatobiliary Scan. Technique: Following the intravenous administration of 5.1 mCi of technetium 99m labeled Choletec multiple planar abdominal planar images were obtained in anterior projection in 1 minute intervals for 55 minutes . Right lateral images were obtained at 60 minutes after injection. Findings: There is rapid uptake within liver but persistent tracer pooling within the liver. No tracer seen within the CBD and small bowel 55 minutes. On the delayed 4 hour image, similarly no tracer seen within the small bowel and CBD Impression: Persistent tracer within the liver which can indicate biliary obstruction, hepatic dysfunction. Correlate clinically.
--- NOTE | 2025-03-26 13:07 | DVHPN2 ---
Subjective Date Seen: Mar 26, 2025 Post op day Post op day: 0 Objective Vitals Vital Sign Date Time Temp Pulse Resp B/P (MAP) Pulse Ox O2 Delivery O2 Flow Rate FiO2 03/26/25 09:00 98.1 70 16 108/61 (77) 95 98.1 03/26/25 00:23 Room Air* 0 21 Total Intake and Output 03/25/25 03/25/25 03/26/25 14:59 22:59 06:59 Intake Total 0 ml Balance 0 ml Medications Current Medications Medications Dose Ordered Sig/Bailey Route Start Time Stop Time Status Last Admin Dose Admin Ondansetron HCl 4 mg Q6HPRN PRN IV 03/25/25 18:30 Pantoprazole Sodium 40 mg DAILY@0600 PO 03/26/25 06:00 03/26/25 09:25 40 MG Acetaminophen/ Hydrocodone Bitart 1 tab Q6HPRN PRN PO 03/25/25 18:30 03/26/25 06:20 1 TAB Morphine Sulfate 2 mg Q6HPRN PRN IV 03/25/25 18:30 Labs and Microbiology Laboratory Tests 03/26/25 04:01 Test 03/26/25 04:01 Range/Units Serum Glucose 90 74-106 mg/dL Ass/Plan Problem List 03/26/25 patient admitted for abdominal pain which started after having his SOO drain removed in the clinic and after a large meal, his pain was "very similar to the ;pains he used to have before his cholecystectomy 3 weeks ago. priro r to the removal his drain had very small amount of non bilious drainage, on admission he was found to have elevated bilirubin and a ultrasound and MRI were ordered, I went to the radiologist's office to reviewed the imaging which was initially reported as normal and the second radiologist confirms no evidence of fluid collection,duct dilatation or choledocholithiasis HIDA scan is pending at this time, on examination the abdomen is non distended, non tender, work up continues.I answered patient's questions to his satisfaction, Assessment/Plan HIDA scan Findings: There is rapid uptake within liver but persistent tracer pooling within the liver. No tracer seen within the CBD and small bowel 55 minutes. On the delayed 4 hour image, similarly no tracer seen within the small bowel and CBD Impression: Persistent tracer within the liver which can indicate biliary obstruction, hepatic dysfunction. Correlate clinically. reviewed HIDA report findings with Dr. Lancaster and he agrees with an ERCP Plan discussed with Dr. Lancaster Visit Coding Surgery Date of Service if different f: Mar 26, 2025 Billing Provider: CURLY LANCASTER MD Surgery Visit Codes: [id number] INP/OBS CARE(HIGH) FREDDY ISRAEL NP Mar 26, 2025 13:07
[2025-03-26] MEDS: cefTRIAXone 1GM/50ML 0 ML IV ONE (18:48)
--- NOTE | 2025-03-26 19:00 | DVHPNRES ---
Progress Note Date Seen: Mar 26, 2025 Resident Creating Document: JAZZ MENDEZ RESIDENT Medical Necessity Reason Pt with a Central, PICC or Fol: No Subjective Review of Systems Waqar Emery is a 49-year old male with lap cholecystectomy done on 03/05/2025 who came to the ER with the chief complaint of abdominal pain since 2-3 hours. Per patient he was discharged home with a SOO drain post the lap cholecystectomy. He went to the surgery outpatient office yesterday morning for his SOO drain removal, post which he had breakfast at home and started developing intense abdominal pain 30 minutes later. He described the pain as sharp, in the midepigastric and right upper quadrant, intermittent, 10/10 in intensity, worsened with eating and relieved after an episode of vomiting. Notes that the pain is similar to the pain he had been he came to the hospital and was diagnosed with cholecystitis. ALT, AST and ALT were raised. Gall Bladder ultrasound showed no fluid collection in gallbladder fossa. MRCP showed no choledocholithiasis or dilatation of the common bile duct. HIDA scan showed persistent tracer within the liver which can indicate biliary obstruction or hepatic dysfunction. Surgery evaluated the patient and recommended transfer to higher level of care for ERCP. Past medical history: None Past surgical history: Appendectomy, cholecystectomy Social & Personal history: Lives with family, denies smoking, alcohol, drugs Allergies: No known allergies Patient seen and examined at bedside. Patient is alert and oriented to time, place person and responding to all questions. Eyes: No Pain, No Vision change, No Conjunctivae inflammation, No Eyelid inflammation, No Redness ENT: No Ear pain, No Ear discharge, No Nose pain, No Nose discharge, No Nose congestion, No Mouth pain, No Mouth swelling, No Throat pain, No Throat swelling Cardiovascular: No Chest Pain, No Palpitations, No Orthopnea, No Paroxysmal No Dyspnea, No Edema, No Lt Headedness Respiratory: No Cough, No Dry, No Shortness of breath, No SOB with exertion, No Wheezing, No Hemoptysis, No Pleuritic Pain, No Sputum Gastrointestinal: No Nausea, No Vomiting, Abdominal Pain, No Diarrhea, No Constipation, No Melena, No Hematochezia Genitourinary: No Dysuria, No Frequency, No Incontinence, No Hematuria, No Retention Objective vital signs Vital Sign Date Time Temp Pulse Resp B/P (MAP) Pulse Ox O2 Delivery O2 Flow Rate FiO2 11/19/25 17:00 98.4 62 16 121/68 (85) 94 98.4 03/26/25 00:23 Room Air* 0 21 Total Intake and Output 03/25/25 03/25/25 03/26/25 15:00 23:00 07:00 Intake Total 0 ml Balance 0 ml medications Current Medications Medications Dose Ordered Sig/Bailey Route Start Time Stop Time Status Last Admin Dose Admin Ondansetron HCl 4 mg Q6HPRN PRN IV 03/25/25 18:30 Pantoprazole Sodium 40 mg DAILY@0600 PO 03/26/25 06:00 03/26/25 09:25 40 MG Acetaminophen/ Hydrocodone Bitart 1 tab Q6HPRN PRN PO 03/25/25 18:30 03/26/25 16:37 1 TAB Morphine Sulfate 2 mg Q6HPRN PRN IV 03/25/25 18:30 Metronidazole 100 ml @ 100 mls/hr Q8HR IV 03/26/25 22:00 Examination General Appearance: Cooperative. Well developed. Well nourished. NAD Head Exam: Normal inspection Neck Exam: Normal inspection. Non-tender. Normal alignment Pulmonary/Respiratory: Chest non-tender. Clear bilateral breath sounds, no crackles, no wheezing. Cardiovascular/Chest: Regular rate and rhythm. No murmurs. No JVD. Peripheral Pulses: 2+ Radial (R). 2+ Radial (L). 2+ Pedal (R). 2+ Pedal (L) Abdominal Exam: Normal bowel sounds. Soft. normal abdomen, no visible veins, m ild abdominal tenderness epigastric area, Vences sign negative, No hepatospenomegaly. No masses Ankle Exam: Negative ankle edema Lower extremities: Negative lower extremity edema Neuro/Mental Status: A&O x4. Coherent. Thoughts/Psych: Normal thought pattern. Appropriate mood and affect. Good judgement and insight Skin Exam: Normal inspection. Normal color. Warm. Dry laboratory and microbiology Laboratory Tests 03/26/25 04:01 Test 03/26/25 04:01 Range/Units Serum Glucose 90 74-106 mg/dL Labs and/or images reviewed: Labs reviewed by me, Image(s) reviewed by me Problem List/Assessment/Plan Problem List/Assessment/Plan # Possible biliary leak # Intractable abdominal pain # S/p laparoscopic cholecystectomy # Hyperbilirubinemia # Jaundice # Transaminitis # Post cholecystectomy pain syndrome, possible - total bilirubin 4.1, AST 282, ALT 445, ALP 183, urine urobilinogen 2+ - right upper quadrant ultrasound showed status post cholecystectomy, no organized fluid collection seen in the gallbladder fossa - MRCP showed no abnormal dilation of common bile duct, no definite choledocholithiasis, no abnormal fluid collection -HIDA scan showed persistent tracer within the liver which can indicate biliary obstruction and hepatic dysfunction - full liquid diet - surgical consultation- recommended transfer to higher level of care for ERCP - Protonix 40 mg daily p.o. -ceftriaxone 2 g IV daily and Flagyl Goals of care discussed with the patient for over 18 minutes. Full code Plan discussed with Dr. Malloy Plan discussed with: Patient My Orders My Orders Orders - JAZZ MENDEZ Procedure Category Date Status Time * Parking Lot Manager CONS 03/26/25 Transmitted Consult Ambulate Every 4hours EUSEBIO 03/26/25 In Process 14:04 Up To Chair EUSEBIO 03/26/25 In Process 14:04 Metronidazole PHA 03/26/25 In Process 500mg/100ml (Flagyl 22:00 Date of Service: Mar 26, 2025 Billing Provider: ROCÍO MALLOY MD Common Visit Codes: [id number] INP/OBS CARE(HIGH) JAZZ MENDEZ RESIDENT Mar 26, 2025 19:00 ROCÍO MALLOY MD Mar 26, 2025 20:59
[2025-03-27] VITALS (9 sets, daily range): BP systolic 113–134; BP diastolic 72–87; PULSE 57–88; RESP 12–19; TEMP 97.3–98.3; O2SAT 92–98
[2025-03-27 06:01] LABS: Hematocrit 38.9 % (41.0-53.0); Hemoglobin 13.4 g/dL (13.5-17.5); Mean Corpuscular Hemoglobin 32.4 pg (28.0-32.0); Mean Corpuscular Volume 94.1 fL (80.0-100.0); Nucleated Red Blood Cells % 0.0 %
[2025-03-27 06:38] LABS: Albumin 3.8 g/dL (3.2-4.8); Anion Gap 9 (5-15); BUN/Creatinine Ratio 7.5 (10.0-20.0); Calcium 8.8 mg/dL (8.7-10.4); Carbon Dioxide 29 mmol/L (20-31); Chloride 105 mmol/L (98-107); Glucose 91 mg/dL (74-106); Potassium 4.2 mmol/L (3.5-5.1); Sodium 143 mmol/L (136-145); Total Protein 6.4 g/dL (5.7-8.2)
[2025-03-27 06:44] LABS: Alanine Aminotransferase 502 U/L (7-40); Alkaline Phosphatase 267 U/L (46-116); Bilirubin, Total 8.2 mg/dL (0.2-1.0); Blood Urea Nitrogen 7 mg/dL (9-23)
--- NOTE | 2025-03-27 13:14 | DVHPN2 ---
Progress Note Date Seen: Mar 27, 2025 Medical Necessity Reason Pt with a Central, PICC or Fol: No Objective vital signs Vital Sign Date Time Temp Pulse Resp B/P (MAP) Pulse Ox O2 Delivery O2 Flow Rate FiO2 03/27/25 09:00 98.3 57 16 131/72 (91) 95 98.3 03/26/25 20:38 Room Air* 0 21 Total Intake and Output 03/26/25 03/26/25 03/27/25 15:00 23:00 07:00 Intake Total 725 ml 700 ml Balance 725 ml 700 ml medications Current Medications Medications Dose Ordered Sig/Bailey Route Start Time Stop Time Status Last Admin Dose Admin Ondansetron HCl 4 mg Q6HPRN PRN IV 03/25/25 18:30 Pantoprazole Sodium 40 mg DAILY@0600 PO 03/26/25 06:00 03/27/25 05:06 40 MG Acetaminophen/ Hydrocodone Bitart 1 tab Q6HPRN PRN PO 03/25/25 18:30 03/27/25 00:30 1 TAB Morphine Sulfate 2 mg Q6HPRN PRN IV 03/25/25 18:30 Metronidazole 100 ml @ 100 mls/hr Q8HR IV 03/26/25 22:00 03/27/25 05:06 100 MLS/HR Ceftriaxone Sodium 50 ml @ 100 mls/hr DAILY@09 IV 03/28/25 09:00 Docusate Sodium 100 mg BID PO 03/27/25 22:00 UNV laboratory and microbiology Laboratory Tests 03/27/25 05:14 Test 03/27/25 05:14 Range/Units Serum Glucose 91 74-106 mg/dL Problem List/Assessment/Plan Problem List/Assessment/Plan 03/26/25 patient admitted for abdominal pain which started after having his SOO drain removed in the clinic and after a large meal, his pain was "very similar to the ;pains he used to have before his cholecystectomy 3 weeks ago. priro r to the removal his drain had very small amount of non bilious drainage, on admission he was found to have elevated bilirubin and a ultrasound and MRI were ordered, I went to the radiologist's office to reviewed the imaging which was initially reported as normal and the second radiologist confirms no evidence of fluid collection,duct dilatation or choledocholithiasis HIDA scan is pending at this time, on examination the abdomen is non distended, non tender, work up continues.I answered patient's questions to his satisfaction, 03/27/25 bilirubin climbing, abdomen non tender, patient afebrile, WBC normal. patiernt needs to be transferred to higher level of care as we are unable to provide ERCP, which i believe is needed as I suspect the etiology of his hyperbilirubinemia is a stone in the CBD although the MRCP does not definitely show evidence of this. HIDA scan shows stasis of isotope in the liver possibly indicating liver ds vs. bgiliary obstruction, CBD stone needs to be ruled out. I have contacted (primary MD.) and asked her to arrange for transfer to a facility capable of doing the ERCP. 1 Plan discussed with: Patient, Other CURLY WOODS MD Mar 27, 2025 13:14
--- NOTE | 2025-03-27 13:58 | DVHPNRES ---
Progress Note Date Seen: Mar 27, 2025 Resident Creating Document: JAZZ MENDEZ RESIDENT Medical Necessity Reason Pt with a Central, PICC or Fol: No Subjective Review of Systems Waqar Emery is a 49-year old male with lap cholecystectomy done on 03/05/2025 who came to the ER with the chief complaint of abdominal pain since 2-3 hours. Per patient he was discharged home with a SOO drain post the lap cholecystectomy. He went to the surgery outpatient office yesterday morning for his SOO drain removal, post which he had breakfast at home and started developing intense abdominal pain 30 minutes later. He described the pain as sharp, in the midepigastric and right upper quadrant, intermittent, 10/10 in intensity, worsened with eating and relieved after an episode of vomiting. Notes that the pain is similar to the pain he had been he came to the hospital and was diagnosed with cholecystitis. ALT, AST and ALT were raised. Gall Bladder ultrasound showed no fluid collection in gallbladder fossa. MRCP showed no choledocholithiasis or dilatation of the common bile duct. HIDA scan showed persistent tracer within the liver which can indicate biliary obstruction or hepatic dysfunction. Surgery evaluated the patient and recommended transfer to higher level of care for ERCP. Past medical history: None Past surgical history: Appendectomy, cholecystectomy Social & Personal history: Lives with family, denies smoking, alcohol, drugs Allergies: No known allergies Patient seen and examined at bedside. Patient is alert and oriented to time, place person and responding to all questions. Eyes: No Pain, No Vision change, No Conjunctivae inflammation, No Eyelid inflammation, No Redness ENT: No Ear pain, No Ear discharge, No Nose pain, No Nose discharge, No Nose congestion, No Mouth pain, No Mouth swelling, No Throat pain, No Throat swelling Cardiovascular: No Chest Pain, No Palpitations, No Orthopnea, No Paroxysmal No Dyspnea, No Edema, No Lt Headedness Respiratory: No Cough, No Dry, No Shortness of breath, No SOB with exertion, No Wheezing, No Hemoptysis, No Pleuritic Pain, No Sputum Gastrointestinal: No Nausea, No Vomiting, Abdominal Pain, No Diarrhea, No Constipation, No Melena, No Hematochezia Genitourinary: No Dysuria, No Frequency, No Incontinence, No Hematuria, No Retention 03/27/25 - The patient was seen and evaluated the bedside. His bilirubin increased to 8.2, AST is 250, ALT is 502 and ALP is 267. Surgery evaluated the patient and recommended transfer to higher level of care for ERCP . A peer to peer discussion was held with the institute to be transferred at, who recommended consulting GI , consult for GI was placed. Patient was given colace 100mg bid for constipation. Objective vital signs Vital Sign Date Time Temp Pulse Resp B/P (MAP) Pulse Ox O2 Delivery O2 Flow Rate FiO2 03/27/25 09:00 98.3 57 16 131/72 (91) 95 98.3 03/26/25 20:38 Room Air* 0 21 Total Intake and Output 03/26/25 03/26/25 03/27/25 15:00 23:00 07:00 Intake Total 725 ml 700 ml Balance 725 ml 700 ml medications Current Medications Medications Dose Ordered Sig/Bailey Route Start Time Stop Time Status Last Admin Dose Admin Ondansetron HCl 4 mg Q6HPRN PRN IV 03/25/25 18:30 Pantoprazole Sodium 40 mg DAILY@0600 PO 03/26/25 06:00 03/27/25 05:06 40 MG Acetaminophen/ Hydrocodone Bitart 1 tab Q6HPRN PRN PO 03/25/25 18:30 03/27/25 00:30 1 TAB Morphine Sulfate 2 mg Q6HPRN PRN IV 03/25/25 18:30 Metronidazole 100 ml @ 100 mls/hr Q8HR IV 03/26/25 22:00 03/27/25 05:06 100 MLS/HR Ceftriaxone Sodium 50 ml @ 100 mls/hr DAILY@09 IV 03/28/25 09:00 Docusate Sodium 100 mg BID PO 03/27/25 22:00 UNV Examination General Appearance: Cooperative. Well developed. Well nourished. yellow discoloration of eyes Head Exam: Normal inspection Neck Exam: Normal inspection. Non-tender. Normal alignment Pulmonary/Respiratory: Chest non-tender. Clear bilateral breath sounds, no crackles, no wheezing. Cardiovascular/Chest: Regular rate and rhythm. No murmurs. No JVD. Peripheral Pulses: 2+ Radial (R). 2+ Radial (L). 2+ Pedal (R). 2+ Pedal (L) Abdominal Exam: Normal bowel sounds. Soft. normal abdomen, no visible veins, m ild abdominal tenderness epigastric area, Vences sign negative, No hepatospenomegaly. No masses Ankle Exam: Negative ankle edema Lower extremities: Negative lower extremity edema Neuro/Mental Status: A&O x4. Coherent. Thoughts/Psych: Normal thought pattern. Appropriate mood and affect. Good judgement and insight Skin Exam: Normal inspection. Normal color. Warm. Dry laboratory and microbiology Laboratory Tests 03/27/25 05:14 Test 03/27/25 05:14 Range/Units Serum Glucose 91 74-106 mg/dL Labs and/or images reviewed: Labs reviewed by me, Image(s) reviewed by me Problem List/Assessment/Plan Problem List/Assessment/Plan # Possible biliary leak # Intractable abdominal pain # S/p laparoscopic cholecystectomy # Hyperbilirubinemia # Jaundice # Transaminitis # Post cholecystectomy pain syndrome, possible - total bilirubin 8.2, AST 250, ALT 502, ALP 267, urine urobilinogen 2+,direct bilirubin 4.9 - right upper quadrant ultrasound showed status post cholecystectomy, no organized fluid collection seen in the gallbladder fossa - MRCP showed no abnormal dilation of common bile duct, no definite choledocholithiasis, no abnormal fluid collection - HIDA scan showed persistent tracer within the liver which can indicate biliary obstruction and hepatic dysfunction - full liquid diet - surgical consultation- recommended transfer to higher level of care for ERCP - Protonix 40 mg daily p.o. - ceftriaxone 2 g IV daily and iv Flagyl - peer to peer discussion with GI doctor at institution to be transferred - GI consult ordered Goals of care discussed with the patient for over 18 minutes. Full code Plan discussed with Dr. Malloy Plan discussed with: Patient My Orders My Orders Orders - JAZZ MENDEZ RESIDENT Procedure Category Date Status Time * Software Asset Management Analyst CONS 03/26/25 Transmitted Consult Ambulate Every 4hours EUSEBIO 03/26/25 In Process 14:04 Up To Chair EUSEBIO 03/26/25 In Process 14:04 Metronidazole PHA 03/26/25 In Process 500mg/100ml (Flagyl 22:00 Ceftriaxone 1gm/50ml PHA 03/28/25 In Process (Rocephin) 09:00 Docusate Sodium PHA 03/27/25 Logged Capsule (Colace 22:00 Date of Service: Mar 27, 2025 Billing Provider: ROCÍO MALLOY MD Common Visit Codes: [id number] INP/OBS CARE(HIGH) JAZZ MENDEZ RESIDENT Mar 27, 2025 13:58 ROCÍO MALLOY MD Mar 27, 2025 22:33
[2025-03-27] MEDS: ONDANSETRON HCL 4 MG/2 ML VIAL IV PRN (14:21)
[2025-03-27] MEDS: DOCUSATE SOD 100 MG CAP PO SCH (21:19)
[2025-03-28] VITALS (7 sets, daily range): BP systolic 108–127; BP diastolic 65–76; PULSE 61–77; RESP 16–18; TEMP 98–98.6; O2SAT 94–97
[2025-03-28 06:50] LABS: Hematocrit 42.0 % (41.0-53.0); Hemoglobin 14.1 g/dL (13.5-17.5); Mean Corpuscular Hemoglobin 31.8 pg (28.0-32.0); Mean Corpuscular Volume 94.7 fL (80.0-100.0); Nucleated Red Blood Cells % 0.0 %
[2025-03-28 07:02] LABS: Anion Gap 11 (5-15); Calcium 9.0 mg/dL (8.7-10.4); Carbon Dioxide 27 mmol/L (20-31); Chloride 105 mmol/L (98-107); Potassium 3.6 mmol/L (3.5-5.1); Sodium 143 mmol/L (136-145)
[2025-03-28 07:08] LABS: BUN/Creatinine Ratio 11.7 (10.0-20.0); Blood Urea Nitrogen 12 mg/dL (9-23); Glucose 81 mg/dL (74-106)
--- NOTE | 2025-03-28 10:56 | DVHPN2 ---
Subjective Date Seen: Mar 28, 2025 Post op day Post op day: 0 Objective Vitals Vital Sign Date Time Temp Pulse Resp B/P (MAP) Pulse Ox O2 Delivery O2 Flow Rate FiO2 03/28/25 08:00 74 16 95 Room Air* 0 03/28/25 05:00 98.3 108/65 (79) 98.3 Total Intake and Output 03/27/25 03/27/25 03/28/25 15:00 23:00 07:00 Intake Total 825 ml 300 ml Balance 825 ml 300 ml Medications Current Medications Medications Dose Ordered Sig/Bailey Route Start Time Stop Time Status Last Admin Dose Admin Ondansetron HCl 4 mg Q6HPRN PRN IV 03/25/25 18:30 03/28/25 06:16 4 MG Pantoprazole Sodium 40 mg DAILY@0600 PO 03/26/25 06:00 03/28/25 06:06 40 MG Acetaminophen/ Hydrocodone Bitart 1 tab Q6HPRN PRN PO 03/25/25 18:30 03/28/25 06:16 1 TAB Morphine Sulfate 2 mg Q6HPRN PRN IV 03/25/25 18:30 Metronidazole 100 ml @ 100 mls/hr Q8HR IV 03/26/25 22:00 03/28/25 06:06 100 MLS/HR Ceftriaxone Sodium 50 ml @ 100 mls/hr DAILY@09 IV 03/28/25 09:00 03/28/25 10:30 100 MLS/HR Docusate Sodium 100 mg BID PO 03/27/25 22:00 03/28/25 10:30 100 MG Labs and Microbiology Laboratory Tests 03/28/25 06:17 Test 03/28/25 06:17 Range/Units Serum Glucose 81 74-106 mg/dL Ass/Plan Labs and/or images reviewed: Labs reviewed by me, Image(s) reviewed by me Problem List # Possible biliary leak # Intractable abdominal pain # S/p laparoscopic cholecystectomy # Hyperbilirubinemia # Jaundice # Transaminitis # Post cholecystectomy pain syndrome, possible - total bilirubin 8.2, AST 250, ALT 502, ALP 267, urine urobilinogen 2+,direct bilirubin 4.9 - right upper quadrant ultrasound showed status post cholecystectomy, no organized fluid collection seen in the gallbladder fossa - MRCP showed no abnormal dilation of common bile duct, no definite choledocholithiasis, no abnormal fluid collection - HIDA scan showed persistent tracer within the liver which can indicate biliary obstruction and hepatic dysfunction - full liquid diet - surgical consultation- recommended transfer to higher level of care for ERCP - Protonix 40 mg daily p.o. - ceftriaxone 2 g IV daily and iv Flagyl - peer to peer discussion with GI doctor at institution to be transferred - GI consult ordered Goals of care discussed with the patient for over 18 minutes. Full code Plan discussed with Dr. Upton Assessment/Plan HIDA scan Findings: There is rapid uptake within liver but persistent tracer pooling within the liver. No tracer seen within the CBD and small bowel 55 minutes. On the delayed 4 hour image, similarly no tracer seen within the small bowel and CBD Impression: Persistent tracer within the liver which can indicate biliary obstruction, hepatic dysfunction. Correlate clinically. reviewed HIDA report findings with Dr. Lancaster and he agrees with an ERCP 03/28/25 tender abdomen , denies nausea or vomiting. bili 3.9 Plan recommend ERCP to rule out occult choledocholithiasis discussed with Dr. Lancaster agrees with plan Prognosis: Good Plan discussed with patient Visit Coding Surgery Date of Service if different f: Mar 28, 2025 Billing Provider: CURLY LANCASTER MD Surgery Visit Codes: [id number] INP/OBS CARE(HIGH) FREDDY ISRAEL NP Mar 28, 2025 10:56
[2025-03-28 14:12] LABS: Albumin 4.0 g/dL (3.2-4.8); Total Protein 6.6 g/dL (5.7-8.2)
[2025-03-28 14:13] LABS: Alanine Aminotransferase 410.0 U/L (7-40); Alkaline Phosphatase 288.0 U/L (46-116); Bilirubin, Direct 2.0 mg/dL (<0.3); Bilirubin, Total 3.9 mg/dL (0.2-1.0)
--- NOTE | 2025-03-28 16:09 | DVHCONRES ---
Date Seen: Mar 28, 2025 Resident Creating Document: MADHAVI PEDRO RESIDENT Referring Physician DR MENDEZ History of Present Illness This is a 49-year-old male who presents to the ER with a chief complaint of right-sided abdominal pain radiating to the back for the past 4 days. He recently had lap cholecystectomy done on 03/05/2025 and got his SOO drain removal on Monday following which he started to experience right-sided abdominal pain. He describes the pain as sharp, radiating to the back, reports nausea but no episodes of vomiting or diarrhea. He reports that he has been experiencing constipation. GI consulted for transaminitis Past medical history: None Past surgical history: Appendectomy, cholecystectomy Social history: Denies smoking/drinking/drug use Patient seen and examined at bedside. Abdomen is nontender, soft, normoactive. Last bowel movement more than 3 days back. Family History: Hypertension G8 MOTHER G8 FATHER Allergies: Coded Allergies: NO KNOWN ALLERGIES (Unverified , 03/03/25) Home Meds No Active Prescriptions or Reported Meds Current Medications Current Medications Medications (Trade) Dose Ordered Sig/Bailey Route PRN Reason Start Time Stop Time Status Last Admin Ceftriaxone Sodium 50 ml @ 100 mls/hr DAILY@09 IV 03/28/25 09:00 03/28/25 10:30 Docusate Sodium (Colace Capsule) 100 mg BID PO 03/27/25 22:00 03/28/25 10:30 Vital Signs Vital Signs Date Time Temp Pulse Resp B/P (MAP) Pulse Ox O2 Delivery O2 Flow Rate FiO2 03/28/25 13:00 98.6 61 16 114/76 (89) 95 98.6 03/28/25 08:00 Room Air* 0 21 Physical Exam Patient lying in bed, in no acute distress General: Well-built, afebrile, palor, mucosae are moist Cardiovascular: Regular S1 and S2. No murmurs, gallops or rubs. No JVD elevation. No pedal edema Respiratory: Normal B/L air entry on room air. Clear lung sounds on au scultation Abdomen: Soft, nontender, nondistended, normoactive bowel sounds, no rebound tenderness, no organomegaly, no masses. Laparoscopic site incision seen. Dressing dry clean intact. Genitourinary: Deferred MSK/skin: Mobilizes 4 limbs. Skin is dry and warm Neurological: No motor, no sensitive deficits, normal speech. Pupils are isocoric and reactive. Psych/Mental Status: A/Ox3 Labs/Diagnostic Data Labs Test 03/28/25 06:17 03/26/25 04:01 03/25/25 17:04 03/25/25 14:08 Range/Units White Blood Count 5.0 4.4-10.8 10^3/uL Red Blood Count 4.43 L 4.5-5.90 10^6/uL Hemoglobin 14.1 13.5-17.5 g/dL Hematocrit 42.0 41.0-53.0 % Mean Corpuscular Volume 94.7 80.0-100.0 fL Mean Corpuscular Hemoglobin 31.8 28.0-32.0 pg Mean Corpuscular Hemoglobin Concent 33.6 32.0-36.0 g/dL Red Cell Distribution Width 14.2 11.8-14.3 % Platelet Count 140 140-450 10^3/uL Mean Platelet Volume 7.1 6.9-10.8 fL Neutrophils (%) (Auto) 76.9 37.0-80.0 % Lymphocytes (%) (Auto) 13.5 10.0-50.0 % Monocytes (%) (Auto) 6.7 0.0-12.0 % Eosinophils (%) (Auto) 2.5 0.0-7.0 % Basophils (%) (Auto) 0.4 0.0-2.0 % Neutrophils # (Auto) 3.9 1.6-8.6 10 ^3/uL Lymphocytes # (Auto) 0.7 0.4-5.4 10 ^3/uL Monocytes # (Auto) 0.3 0-1.3 10 ^3/uL Eosinophils # (Auto) 0.1 0-0.8 10 ^3/uL Basophils # (Auto) 0 0-0.2 10 ^3/uL Nucleated Red Blood Cells 0.0 % Sodium Level 143 136-145 mmol/L Potassium Level 3.6 3.5-5.1 mmol/L Chloride Level 105 98-107 mmol/L Carbon Dioxide Level 27 20-31 mmol/L Anion Gap 11 5-15 Blood Urea Nitrogen 12 9-23 mg/dL Creatinine 1.03 0.700-1.30 mg/dL Glomerular Filtration Rate Calc 90 >90 mL/min BUN/Creatinine Ratio 11.7 10.0-20.0 Serum Glucose 81 74-106 mg/dL Calcium Level 9.0 8.7-10.4 mg/dL Total Bilirubin 3.9 H 0.2-1.0 mg/dL Direct Bilirubin 2.0 H <0.3 mg/dL Aspartate Amino Transferase (AST) 131 H 13-40 U/L Alanine Aminotransferase (ALT) 410 H 7-40 U/L Alkaline Phosphatase 288 H 46-116 U/L Total Protein 6.6 5.7-8.2 g/dL Albumin 4.0 3.2-4.8 g/dL Prothrombin Time 10.9 9.3-11.8 sec Prothrombin Time INR 1.03 0.9-1.15 Activated Partial Thromboplast Time 29.3 24.5-34.5 SEC Urine Color Yellow Yellow Urine Clarity Clear Clear Urine pH 6.0 5.0-9.0 Urine Specific [place] 1.027 1.001-1.035 Urine Protein Trace H Negative Urine Ketones Negative Negative Urine Blood Negative Negative /uL Urine Nitrite Negative Negative Urine Bilirubin Negative Negative Urine Urobilinogen 2 H Negative mg/dL Urine Leukocyte Esterase Negative Negative /uL Urine RBC 1 0 - 3 /hpf Urine Microscopic WBC 2 0-3 /HPF Urine Squamous Epithelial Cells None seen <5 /hpf Urine Calcium Oxalate Crystals Few None Seen Urine Bacteria None seen None Seen /hpf Urine Mucus Few None Seen Urine Glucose Normal Normal mg/dL Lipase 41 12-53 U/L Assessment Cholestatic liver injury likely drug related Rule out choledocholithiasis Rule out biliary leak Recent laparoscopic cholecystectomy Plan: Recommendation: Dr. Bejarano: Given the negative MRCP, we recommend conservative management at this time. Started ursodiol trended mg p.o. b.i.d.. Continue for 7 days on discharge. Given the bilirubin >5 mg/dL, the diagnostic utility of a HIDA scan in the patient with elevated bilirubin is limited due to competitive inhibition of tracer uptake and excretion by hepatocyte. MiraLax 1 time ordered. Follow up with hepatitis panel. Monitor CMP Continue Protonix 40 mg daily Avoid NSAIDs/ibuprofen/Motrin Plan discussed with patient in which all questions have been answered Case discussed with Dr. Bejarano Plan discussed with: Patient MADHAVI PEDRO RESIDENT Mar 28, 2025 16:09
[2025-03-28] MEDS: POLYETHYLENE GLYCOL 17 GM PWDR PO ONE (17:24)
[2025-03-28] MEDS: POLYETHYLENE GLYCOL 17 GM PWDR ONE (17:30)
--- NOTE | 2025-03-28 18:07 | DVHPNRES ---
Progress Note Date Seen: Mar 28, 2025 Resident Creating Document: JAZZ MENDEZ RESIDENT Medical Necessity Reason Pt with a Central, PICC or Fol: No Subjective Review of Systems Waqar Emery is a 49-year old male with lap cholecystectomy done on 03/05/2025 who came to the ER with the chief complaint of abdominal pain since 2-3 hours. Per patient he was discharged home with a SOO drain post the lap cholecystectomy. He went to the surgery outpatient office yesterday morning for his SOO drain removal, post which he had breakfast at home and started developing intense abdominal pain 30 minutes later. He described the pain as sharp, in the midepigastric and right upper quadrant, intermittent, 10/10 in intensity, worsened with eating and relieved after an episode of vomiting. Notes that the pain is similar to the pain he had been he came to the hospital and was diagnosed with cholecystitis. ALT, AST and ALT were raised. Gall Bladder ultrasound showed no fluid collection in gallbladder fossa. MRCP showed no choledocholithiasis or dilatation of the common bile duct. HIDA scan showed persistent tracer within the liver which can indicate biliary obstruction or hepatic dysfunction. Surgery evaluated the patient and recommended transfer to higher level of care for ERCP. Past medical history: None Past surgical history: Appendectomy, cholecystectomy Social & Personal history: Lives with family, denies smoking, alcohol, drugs Allergies: No known allergies Patient seen and examined at bedside. Patient is alert and oriented to time, place person and responding to all questions. Eyes: No Pain, No Vision change, No Conjunctivae inflammation, No Eyelid inflammation, No Redness ENT: No Ear pain, No Ear discharge, No Nose pain, No Nose discharge, No Nose congestion, No Mouth pain, No Mouth swelling, No Throat pain, No Throat swelling Cardiovascular: No Chest Pain, No Palpitations, No Orthopnea, No Paroxysmal No Dyspnea, No Edema, No Lt Headedness Respiratory: No Cough, No Dry, No Shortness of breath, No SOB with exertion, No Wheezing, No Hemoptysis, No Pleuritic Pain, No Sputum Gastrointestinal: No Nausea, No Vomiting, Abdominal Pain, No Diarrhea, No Constipation, No Melena, No Hematochezia Genitourinary: No Dysuria, No Frequency, No Incontinence, No Hematuria, No Retention 03/27/25 - The patient was seen and evaluated the bedside. His bilirubin increased to 8.2, AST is 250, ALT is 502 and ALP is 267. Surgery evaluated the patient and recommended transfer to higher level of care for ERCP . A peer to peer discussion was held with the institute to be transferred at, who recommended consulting GI , consult for GI was placed. Patient was given colace 100mg bid for constipation. 03/28/25 - patient was seen and evaluated at bedside. Bilirubin today was 3.9, direct bilirubin 2, AST 131, ALT 410, ALP 288. We ordered hepatic panel, BIBIANA, antismooth muscle antibody and antimitochondrial antibody to evaluate for autoimmune hepatitis and PBC. GI evaluated the patient and recommended to start with ursodiol 300 mg p.o. b.i.d. and monitor CMP. Objective vital signs Vital Sign Date Time Temp Pulse Resp B/P (MAP) Pulse Ox O2 Delivery O2 Flow Rate FiO2 03/28/25 17:00 98.0 67 18 115/74 (88) 96 98.0 03/28/25 08:00 Room Air* 0 21 Total Intake and Output 03/27/25 03/27/25 03/28/25 15:00 23:00 07:00 Intake Total 825 ml 300 ml Balance 825 ml 300 ml medications Current Medications Medications Dose Ordered Sig/Bailey Route Start Time Stop Time Status Last Admin Dose Admin Ondansetron HCl 4 mg Q6HPRN PRN IV 03/25/25 18:30 03/28/25 06:16 4 MG Pantoprazole Sodium 40 mg DAILY@0600 PO 03/26/25 06:00 03/28/25 06:06 40 MG Acetaminophen/ Hydrocodone Bitart 1 tab Q6HPRN PRN PO 03/25/25 18:30 03/28/25 06:16 1 TAB Morphine Sulfate 2 mg Q6HPRN PRN IV 03/25/25 18:30 Metronidazole 100 ml @ 100 mls/hr Q8HR IV 03/26/25 22:00 03/28/25 14:25 100 MLS/HR Ceftriaxone Sodium 50 ml @ 100 mls/hr DAILY@09 IV 03/28/25 09:00 03/28/25 10:30 100 MLS/HR Docusate Sodium 100 mg BID PO 03/27/25 22:00 03/28/25 10:30 100 MG Ursodiol 300 mg BID PO 03/28/25 22:00 Examination General Appearance: Cooperative. Well developed. Well nourished. yellow discoloration of eyes Head Exam: Normal inspection Neck Exam: Normal inspection. Non-tender. Normal alignment Pulmonary/Respiratory: Chest non-tender. Clear bilateral breath sounds, no crackles, no wheezing. Cardiovascular/Chest: Regular rate and rhythm. No murmurs. No JVD. Peripheral Pulses: 2+ Radial (R). 2+ Radial (L). 2+ Pedal (R). 2+ Pedal (L) Abdominal Exam: Normal bowel sounds. Soft. normal abdomen, no visible veins, mild abdominal tenderness epigastric area, Vences sign negative, No hepatospenomegaly. No masses Ankle Exam: Negative ankle edema Lower extremities: Negative lower extremity edema Neuro/Mental Status: A&O x4. Coherent. Thoughts/Psych: Normal thought pattern. Appropriate mood and affect. Good judgement and insight Skin Exam: Normal inspection. Normal color. Warm. 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 - right upper quadrant ultrasound showed status post cholecystectomy, no organized fluid collection seen in the gallbladder fossa - MRCP showed no abnormal dilation of common bile duct, no definite choledocholithiasis, no abnormal fluid collection - HIDA scan showed persistent tracer within the liver which can indicate biliary obstruction and hepatic dysfunction -soft mechanical diet - surgical consultation- recommended transfer to higher level of care for ERCP - Protonix 40 mg daily p.o. - ceftriaxone 2 g IV daily and iv Flagyl - peer to peer discussion with GI doctor at institution to be transferred - GI - started on ursodiol 300 mg p.o. b.i.d.. Ordered hepatic panel and CMP -ordered BIBIANA, antismooth muscle antibody and antimitochondrial antibody Goals of care discussed with the patient for over 18 minutes. Full code Plan discussed with Dr. Malloy Plan discussed with: Patient My Orders My Orders Orders - JAZZ MENDEZ Procedure Category Date Status Time Acute Hepatitis Panel LAB 03/28/25 In Process 15:04 Comprehensive LAB 03/28/25 In Process Hepatitis Panel 15:04 Date of Service: Mar 28, 2025 Billing Provider: ROCÍO MALLOY MD Common Visit Codes: [id number] INP/OBS CARE(HIGH) JAZZ MENDEZ RESIDENT Mar 28, 2025 18:07 ROCÍO MALLOY MD Mar 28, 2025 23:17
[2025-03-28 18:56] LABS: Hepatitis A Total Antibody Positive (Negative)
[2025-03-28 19:00] LABS: Hepatitis B Surface Antigen Negative (Negative); Hepatitis C Antibody Negative (Negative)
[2025-03-28] MEDS ORDERED: URSODIOL 300 MG CAP ONE (21:45)
[2025-03-28] MEDS: URSODIOL 300 MG CAP PO SCH (21:50)
[2025-03-29 05:00] VITALS: BP 106/72; PULSE 69; RESP 18; TEMP 97.9; O2SAT 93
--- NOTE | 2025-03-29 06:34 | DVHPN2 ---
Progress Note Date Seen: Mar 29, 2025 Medical Necessity Reason Pt with a Central, PICC or Fol: No Objective vital signs Vital Sign Date Time Temp Pulse Resp B/P (MAP) Pulse Ox O2 Delivery O2 Flow Rate FiO2 03/29/25 05:00 97.9 69 18 106/72 (83) 93 97.9 03/28/25 20:00 Room Air* 0 21 Total Intake and Output 03/28/25 03/28/25 03/29/25 15:00 23:00 07:00 Intake Total 150 ml 500 ml 330 ml Balance 150 ml 500 ml 330 ml medications Current Medications Medications Dose Ordered Sig/Bailey Route Start Time Stop Time Status Last Admin Dose Admin Ondansetron HCl 4 mg Q6HPRN PRN IV 03/25/25 18:30 03/28/25 06:16 4 MG Pantoprazole Sodium 40 mg DAILY@0600 PO 03/26/25 06:00 03/29/25 05:58 40 MG Acetaminophen/ Hydrocodone Bitart 1 tab Q6HPRN PRN PO 03/25/25 18:30 03/28/25 06:16 1 TAB Morphine Sulfate 2 mg Q6HPRN PRN IV 03/25/25 18:30 Metronidazole 100 ml @ 100 mls/hr Q8HR IV 03/26/25 22:00 03/29/25 05:58 100 MLS/HR Ceftriaxone Sodium 50 ml @ 100 mls/hr DAILY@09 IV 03/28/25 09:00 03/28/25 10:30 100 MLS/HR Docusate Sodium 100 mg BID PO 03/27/25 22:00 03/28/25 21:51 100 MG Ursodiol 300 mg BID PO 03/28/25 22:00 03/28/25 21:50 300 MG laboratory and microbiology Laboratory Tests 03/28/25 06:17 Test 03/28/25 06:17 Range/Units Serum Glucose 81 74-106 mg/dL Problem List/Assessment/Plan Problem List/Assessment/Plan 03/26/25 patient admitted for abdominal pain which started after having his SOO drain removed in the clinic and after a large meal, his pain was "very similar to the ;pains he used to have before his cholecystectomy 3 weeks ago. priro r to the removal his drain had very small amount of non bilious drainage, on admission he was found to have elevated bilirubin and a ultrasound and MRI were ordered, I went to the radiologist's office to reviewed the imaging which was initially reported as normal and the second radiologist confirms no evidence of fluid collection,duct dilatation or choledocholithiasis HIDA scan is pending at this time, on examination the abdomen is non distended, non tender, work up continues.I answered patient's questions to his satisfaction, 03/27/25 bilirubin climbing, abdomen non tender, patient afebrile, WBC normal. patiernt needs to be transferred to higher level of care as we are unable to provide ERCP, which i believe is needed as I suspect the etiology of his hyperbilirubinemia is a stone in the CBD although the MRCP does not definitely show evidence of this. HIDA scan shows stasis of isotope in the liver possibly indicating liver ds vs. bgiliary obstruction, CBD stone needs to be ruled out. I have contacted (primary MD.) and asked her to arrange for transfer to a facility capable of doing the ERCP. 03/29/25 patient feels much better, appears less jaundiced, abdomen non tender, he probably passed a common duct stone. from surgical point of view he is stable to discharge 1 Plan discussed with: Patient CURLY WOODS MD Mar 29, 2025 06:34
[2025-03-29 07:38] LABS: Hematocrit 40.2 % (41.0-53.0); Hemoglobin 13.5 g/dL (13.5-17.5); Mean Corpuscular Hemoglobin 31.8 pg (28.0-32.0); Mean Corpuscular Volume 94.5 fL (80.0-100.0); Nucleated Red Blood Cells % 0.0 %
[2025-03-29 08:00] VITALS: PULSE 62; RESP 16; O2SAT 94
[2025-03-29 08:00] LABS: Anion Gap 11 (5-15); BUN/Creatinine Ratio 12.8 (10.0-20.0); Blood Urea Nitrogen 11 mg/dL (9-23); Carbon Dioxide 25 mmol/L (20-31); Chloride 106 mmol/L (98-107); Glucose 90 mg/dL (74-106); Potassium 3.7 mmol/L (3.5-5.1); Sodium 142 mmol/L (136-145); Total Protein 6.4 g/dL (5.7-8.2)
[2025-03-29 08:01] LABS: Albumin 3.8 g/dL (3.2-4.8)
[2025-03-29 08:06] LABS: Alanine Aminotransferase 264 U/L (7-40); Alkaline Phosphatase 236 U/L (46-116); Bilirubin, Total 1.9 mg/dL (0.2-1.0); Calcium 8.6 mg/dL (8.7-10.4)
[2025-03-29 09:00] VITALS: BP 126/70; PULSE 62; RESP 18; TEMP 97.9; O2SAT 94
[2025-03-29] MEDS ORDERED: URSODIOL 300 MG CAP ONE (09:31)
[2025-03-29 13:00] VITALS: BP 106/69; PULSE 69; RESP 18; TEMP 98; O2SAT 95
[2025-03-29 15:47] VITALS: BP 106/69; PULSE 69; RESP 18; TEMP 98; O2SAT 95
[2025-03-29] MEDS ORDERED: URSO300C2 PO (16:41)
[2025-03-29 16:52] VITALS: BP 129/80; PULSE 75; RESP 18; TEMP 98; O2SAT 95
--- NOTE | 2025-03-29 18:51 | DVHPN2 ---
Progress Note - Dictate Date Seen: Mar 29, 2025 (Late entryTime of visit 10 am) Medical Necessity Reason Pt with a Central, PICC or Fol: No Subjective No new complaints, patient feels much better, appears less jaundiced Patient is tolerating diet Liver enzymes are trending down vital signs Vital Sign Date Time Temp Pulse Resp B/P (MAP) Pulse Ox O2 Delivery O2 Flow Rate FiO2 03/29/25 16:52 98.0 75 18 129/80 (96) 95 98.0 03/29/25 08:00 Room Air* 0 21 Total Intake and Output 03/28/25 03/28/25 03/29/25 15:00 23:00 07:00 Intake Total 150 ml 500 ml 330 ml Balance 150 ml 500 ml 330 ml objective General: Well-built, afebrile, palor, mucosae are moist Cardiovascular: Regular S1 and S2. No murmurs, gallops or rubs. No JVD elevation. No pedal edema Respiratory: Normal B/L air entry on room air. Clear lung sounds on auscultation Abdomen: Soft, nontender, nondistended, normoactive bowel sounds, no rebound tenderness, no organomegaly, no masses. Laparoscopic site incision seen. Dressing dry clean intact. Genitourinary: Deferred MSK/skin: Mobilizes 4 limbs. Skin is dry and warm Neurological: No motor, no sensitive deficits, normal speech. Pupils are isocoric and reactive. Psych/Mental Status: A/Ox3 laboratory and microbiology Laboratory Tests 03/29/25 06:55 Test 03/29/25 06:55 Range/Units Serum Glucose 90 74-106 mg/dL Problems(with codes): (1) Post-cholecystectomy syndrome (2) Elevated liver enzymes Prognosis Plan Patient's jaundice and elevated liver enzymes are resolving Surgical consult suspect possible passage of a CBD stone Patient is stable for discharge and discharge planning is in progress Outpatient follow up with GI Services for any ongoing management and elective colonoscopy Avoid alcohol NSAIDs Tylenol and hepatotoxic agents Plan discussed with: Patient, Other (Dr Santos) APOLINAR FERNANDEZ MD Mar 29, 2025 18:51
--- NOTE | 2025-03-29 19:29 | DVHDSRES ---
Discharge Summary Date of Admission Resident Creating Document: JAZZ MENDEZ RESIDENT Mar 25, 2025 at 17:25 Date of Discharge: Mar 29, 2025 Labs/Diagnostic Data: Laboratory Results Test 03/29/25 06:55 03/28/25 16:23 03/28/25 06:17 03/26/25 04:01 White Blood Count 4.1 10^3/uL (4.4-10.8) Red Blood Count 4.26 10^6/uL (4.5-5.90) Hemoglobin 13.5 g/dL (13.5-17.5) Hematocrit 40.2 % (41.0-53.0) Mean Corpuscular Volume 94.5 fL (80.0-100.0) Mean Corpuscular Hemoglobin 31.8 pg (28.0-32.0) Mean Corpuscular Hemoglobin Concent 33.6 g/dL (32.0-36.0) Red Cell Distribution Width 14.0 % (11.8-14.3) Platelet Count 141 10^3/uL (140-450) Mean Platelet Volume 7.0 fL (6.9-10.8) Neutrophils (%) (Auto) 66.2 % (37.0-80.0) Lymphocytes (%) (Auto) 20.1 % (10.0-50.0) Monocytes (%) (Auto) 8.2 % (0.0-12.0) Eosinophils (%) (Auto) 5.2 % (0.0-7.0) Basophils (%) (Auto) 0.3 % (0.0-2.0) Neutrophils # (Auto) 2.7 10 ^3/uL (1.6-8.6) Lymphocytes # (Auto) 0.8 10 ^3/uL (0.4-5.4) Monocytes # (Auto) 0.3 10 ^3/uL (0-1.3) Eosinophils # (Auto) 0.2 10 ^3/uL (0-0.8) Basophils # (Auto) 0 10 ^3/uL (0-0.2) Nucleated Red Blood Cells 0.0 % Sodium Level 142 mmol/L (136-145) Potassium Level 3.7 mmol/L (3.5-5.1) Chloride Level 106 mmol/L (98-107) Carbon Dioxide Level 25 mmol/L (20-31) Anion Gap 11 (5-15) Blood Urea Nitrogen 11 mg/dL (9-23) Creatinine 0.86 mg/dL (0.700-1.30) Glomerular Filtration Rate Calc 107 mL/min (>90) BUN/Creatinine Ratio 12.8 (10.0-20.0) Serum Glucose 90 mg/dL (74-106) Calcium Level 8.6 mg/dL (8.7-10.4) Total Bilirubin 1.9 mg/dL (0.2-1.0) Aspartate Amino Transferase (AST) 53 U/L (13-40) Alanine Aminotransferase (ALT) 264 U/L (7-40) Alkaline Phosphatase 236 U/L (46-116) Total Protein 6.4 g/dL (5.7-8.2) Albumin 3.8 g/dL (3.2-4.8) Direct Bilirubin 2.0 mg/dL (<0.3) Hepatitis A IgM Antibody Negative Hepatitis A Antibody Total Positive (Negative) Hepatitis B Surface Antigen Negative (Negative) Hepatitis B Surface Antibody Positive (Negative) Hepatitis B Core Total Antibody Positive (Negative) Hepatitis B Core IgM Antibody Negative (Negative) Hepatitis C Antibody Negative (Negative) Prothrombin Time 10.9 sec (9.3-11.8) Prothrombin Time INR 1.03 (0.9-1.15) Activated Partial Thromboplast Time 29.3 SEC (24.5-34.5) Test 03/25/25 17:04 03/25/25 14:08 Urine Color Yellow (Yellow) Urine Clarity Clear (Clear) Urine pH 6.0 (5.0-9.0) Urine Specific [place] 1.027 (1.001-1.035) Urine Protein Trace (Negative) Urine Ketones Negative (Negative) Urine Blood Negative /uL (Negative) Urine Nitrite Negative (Negative) Urine Bilirubin Negative (Negative) Urine Urobilinogen 2 mg/dL (Negative) Urine Leukocyte Esterase Negative /uL (Negative) Urine RBC 1 /hpf (0 - 3) Urine Microscopic WBC 2 /HPF (0-3) Urine Squamous Epithelial Cells None seen /hpf (<5) Urine Calcium Oxalate Crystals Few (None Seen) Urine Bacteria None seen /hpf (None Seen) Urine Mucus Few (None Seen) Urine Glucose Normal mg/dL (Normal) Lipase 41 U/L (12-53) Other Laboratory Tests 03/29/25 06:55 Brief Hx & Hospital Course: Waqar Emery is a 49-year old male with lap cholecystectomy done on 03/05/2025 who came to the ER with the chief complaint of abdominal pain since 2-3 hours. Per patient he was discharged home with a SOO drain post the lap cholecystectomy. He went to the surgery outpatient office yesterday morning for his SOO drain removal, post which he had breakfast at home and started developing intense abdominal pain 30 minutes later. He described the pain as sharp, in the midepigastric and right upper quadrant, intermittent, 10/10 in intensity, worsened with eating and relieved after an episode of vomiting. Notes that the pain is similar to the pain he had been he came to the hospital and was diagnosed with cholecystitis.ALT, AST and ALT were raised. Gall Bladder ultrasound showed no fluid collection in gallbladder fossa. MRCP showed no choledocholithiasis or dilatation of the common bile duct. HIDA scan showed persistent tracer within the liver which can indicate biliary obstruction or hepatic dysfunction. Surgery evaluated the patient and recommended transfer to higher level of care for ERCP. GI consult was placed, patient was started on ursodiol 300 mg p.o. b.i.d.. Bilirubin, liver enzymes continue to trend down and patient continued to feel better with no nausea, vomiting or abdominal pain. The yellow discoloration of his eyes reduced considerably. Surgeon suspected possible passage of a CBD stone. Patient was discharged home in a stable condition on ursodiol 300 mg p.o. b.i.d.. He was advised to avoid alcohol, NSAIDs, Tylenol and hepatotoxic agents. Patient was recommended to follow-up outpatient with PCP, in [facility] clinic and with GI for elective colonoscopy and for pending results for autoimmune hepatitis. Past medical history: None Past surgical history: Appendectomy, cholecystectomy Social & Personal history: Lives with family, denies smoking, alcohol, drugs Allergies: No known allergies General Appearance: Cooperative. Well developed. Well nourished. Head Exam: Normal inspection Neck Exam: Normal inspection. Non-tender. Normal alignment Pulmonary/Respiratory: Chest non-tender. Clear bilateral breath sounds, no crackles, no wheezing. Cardiovascular/Chest: Regular rate and rhythm. No murmurs. No JVD. Peripheral Pulses: 2+ Radial (R). 2+ Radial (L). 2+ Pedal (R). 2+ Pedal (L) Abdominal Exam: Normal bowel sounds. Soft. normal abdomen, no visible veins, no abdominal tenderness, Vences sign negative, No hepatospenomegaly. No masses Ankle Exam: Negative ankle edema Lower extremities: Negative lower extremity edema Neuro/Mental Status: A&O x4. Coherent. Thoughts/Psych: Normal thought pattern. Appropriate mood and affect. Good judgement and insight Skin Exam: Normal inspection. Normal color. Warm. Dry Operations or Procedures 1.PROCEDURE(s): ABDL - ABDOMEN LIMITED REASON: s/p lap saji, RUQ pain ORDER NUMBER(s): [id number], ACCESSION NUMBER(s): [id number] INDICATION: s/p lap saji, RUQ pain TECHNIQUE: Multiple real-time sonographic images were obtained of the right upper quadrant. COMPARISON: US ABDOMEN COMPLETE SONOGRAM on DOS: 03/03/25 FINDINGS: The liver demonstrates increased echotexture without focal mass lesions. The liver measures 16 cm. There is no intrahepatic or extrahepatic ductal dilatation. The common duct measures 5 mm. Status post cholecystectomy. The right kidney measures 12 cm. The right kidney is normal in contour, size, and shape. The echogenicity is normal. There is no hydronephrosis. The pancreas is not well visualized due to overlying bowel gas. IMPRESSION: Status post cholecystectomy. No organized fluid collection is visualized in the gallbladder fossa. 2.PROCEDURE(s): MRCP - MRCP MRI REASON: s/p lap saji, r/o CBD dilation ORDER NUMBER(s): [id number], ACCESSION NUMBER(s): [id number] EXAM: MRI MRCP MRI HISTORY: s/p lap saji, r/o CBD dilation COMPARISON: MRI MRCP MRI on DOS: 03/04/25 TECHNIQUE: Multiplanar, multisequence imaging of the abdomen was performed without contrast. FINDINGS: [LOWER CHEST]: No pleural effusion. [LIVER]: The liver is normal in size without focal lesions. Normal liver contour. [SPLEEN]: Unremarkable. [PANCREAS]: The pancreas is normal in appearance without focal lesions. Normal pancreatic duct size. [GALLBLADDER AND DUCTS]: Postsurgical change related to recent cholecystectomy. No abnormal dilation of the common bile duct. No definitive choledocholithiasis. Poor visualization of the cystic duct likely related to surgical clipping. [ADRENAL GLANDS]: Unremarkable. [KIDNEYS]: Normal enhancement without suspicious lesions or hydronephrosis. [VISUALIZED BOWEL]: Grossly unremarkable. [VASCULATURE]: Unremarkable. [LYMPHADENOPATHY]: No evidence for lymphadenopathy. [ASCITES]: Absent. [MUSCULOSKELETAL]: Bone marrow signal is normal. [OTHER]: None IMPRESSION: 1. No abnormal dilation of the common bile duct. 2. No definitive choledocholithiasis. 3. No abnormal fluid collection. 3.PROCEDURE(s): [facility] - [place] HIDA SCAN REASON: R/O bile leak / obstruction ORDER NUMBER(s): [id number], ACCESSION NUMBER(s): [id number] Procedure: [place] HIDA SCAN Exam Date: 03/26/2025 09:30 AM Clinical History: R/O bile leak / obstruction Comparison Study: [place] HIDA SCAN on DOS: 03/04/25 Nuclear Medicine Hepatobiliary Scan. Technique: Following the intravenous administration of 5.1 mCi of technetium 99m labeled Choletec multiple planar abdominal planar images were obtained in anterior projection in 1 minute intervals for 55 minutes . Right lateral images were obtained at 60 minutes after injection. Findings: There is rapid uptake within liver but persistent tracer pooling within the liver. No tracer seen within the CBD and small bowel 55 minutes. On the delayed 4 hour image, similarly no tracer seen within the small bowel and CBD Impression: Persistent tracer within the liver which can indicate biliary obstruction, hepatic dysfunction. Correlate clinically. Condition at Discharge: Fair Final Diagnosis/Problems List Possible biliary leak ,ruled out Cholestatic liver injury likely drug related Intractable abdominal pain, likely due to above S/p laparoscopic cholecystectomy Hyperbilirubinemia Jaundice Transaminitis Post cholecystectomy pain syndrome, possible Ruled out choledocholithiasis Possible autoimmune hepatitis Discharge Disposition: Home Discharge Instruct/Medications Diet: Regular Activity: No Restrictions, As Tolerated Follow Up/Referral: follow up in dc clinic in 1 week follow up with PCP in 1-2 weeks with CMP Medications: ursodiol 300mg po bid for 7 days Scheduled Ursodiol (Ursodiol), 300 MG PO BID Discharge Statement: "Patient was advised to return to the ER or call 911 if any headaches, dizziness, shortness of breath, chest pain, abdominal pain, bleeding, fevers, or worsening of medical condition. Patient was counseled about treatment plan, medications, possible side effects, patientverbalized understanding. All questions were answered to the best of my ability. This discharge took greater then 30 minutes in planning, reviewing documentation, counseling the patient, and discussing with other team members." ASSESSMENT ASSESSMENT Assessment Cholestatic liver injury likely drug related Date of Service: Mar 29, 2025 Billing Provider: ADY SHAW MD Common Visit Codes: 61909-HTI/OBS DISCH DAY >30min JAZZ MENDEZ RESIDENT Mar 29, 2025 19:29
[2025-04-01 10:08] LABS: Anti-Nuclear Antibody Direct Negative (Negative)
== END 2025-03-29 16:53 | disposition home or self-care (01) ==
LOC: ER 12:26 → OVERFLOW 17:25 → EAST 03-26 20:38
PROVIDERS: ADMIT Internal Medicine; ATTEND Internal Medicine
DX: K71.0 Toxic liver disease with cholestasis (principal); K75.4 Autoimmune hepatitis; E80.6 Other disorders of bilirubin metabolism; R74.01 Elevation of levels of liver transaminase levels; G89.29 Other chronic pain; K52.9 Noninfective gastroenteritis and colitis, unspecified; X58.XXXA Exposure to other specified factors, initial encounter; Z90.49 Acquired absence of other specified parts of digestive tract; Y93.89 Activity, other specified; Y92.89 Other specified places as the place of occurrence of the external cause; Y99.8 Other external cause status; T50.905A Adverse effect of unspecified drugs, medicaments and biological substances, initial encounter
CPT/HCPCS: 36415; 74181; 76705; 78226; 80048; 80053; 80074; 80076; 81001; 82247; 82248; 83690; 85025; 85610; 85730; 86038; 86704; 86706; 86708; 86803; 87340; G0378; J1885; J2405; J3490